=== PATIENT | male | born 1970 | race Caucasian/White ===

== ENCOUNTER 2018-03-23 08:57 | Inpatient (IN) ==
[2018-03-23] MEDS ORDERED: 0.9 % Sodium Chloride 1,000 ML IVC ONE (09:28)
[2018-03-23 10:13] LABS: Basophils % 0.3 %; Eosinophils # 0.1 K/mcL (0.0-0.6); Eosinophils % 0.4 %; Hemoglobin 14.4 g/dL (12.9-16.9); Immature Granulocytes % 0.7 % (0-4); Lymphocytes # 1.3 K/mcL (0.6-4.6); Lymphocytes % 8.4 %; Mean Corpuscular HGB Conc 32.7 g/dL (31.6-35.5); Mean Corpuscular Hemoglobin 27.9 pg (28.0-33.3); Mean Corpuscular Volume 85.1 fL (83.0-100.0); Mean Platelet Volume 10.4 fL (9.4-12.4); Monocytes # 1.5 K/mcL (0.0-1.3); Neutrophils # 12.3 K/mcL (1.6-8.9); Platelet Count 198 K/mcL (140-400); Red Blood Count 5.17 M/mcL (4.19-5.50); Red Cell Distribution Width 13.9 % (11.5-14.5); Segmented Neutrophils % 80.2 %
[2018-03-23] MEDS ORDERED: Isovue-370 500 ML INFUS..BTL IV ONE (10:24)
[2018-03-23] MEDS ORDERED: *HR* HYDROcodone/Acet 5/325 mg TABLET PO ONE (10:36)
[2018-03-23] MEDS ORDERED: Tdap (Boostrix) Vaccine 0.5 ML SYRINGE IM ONE (10:40)
--- NOTE | 2018-03-23 10:41 | Emergency Department Note ---
Disposition Clinical Impression: Cellulitis, Swelling of joint, hand, right, Extensor tenosynovitis of right wrist Disposition: Admitted As Inpatient Condition: Fair Referrals: NONE,PCP [Primary Care Provider] - Suyapa Dawson [Family Provider] - Forms: ED Satisfaction Letter Time of Disposition: 12:13 General Adult HPI - General Chief complaint: ED Extremity Injury, Upper Stated complaint: Right Hand Injury/Infection Time Seen by Provider: 03/23/18 09:01 Source: patient Mode of arrival: ambulatory Limitations: no limitations Nursing Notes Reviewed: Yes Vital Signs Reviewed: Yes - History of Present Illness HPI Narrative: Patient presents emergency room for evaluation of right upper extremity injury. He was seen in outside facility several days ago started on antibiotics and has not had any relief of the symptoms. Denies any specific trauma but has had injury to the arm in the past. He has pain over the wrist and swelling to the hand and is causing him significant distress and symptoms of this point. Patient decided to come in the emergency room for evaluation here today because he was unable tolerate the symptoms at home. Onset (ago): day(s) Location: right, upper extremity Radiation: non-radiation Pain Severity: moderate Pain Scale: 8 Quality: aching Consistency: constant Improves with: nothing Worsens with: movement Associated symptoms: Reports: denies other symptoms Treatments Prior to Arrival: none - Related Data Previous Rx's Medication Instructions Recorded Cephalexin [Keflex] 500 mg PO BID #14 capsule 03/21/18 Allergies Allergy/AdvReac Type Severity Reaction Status Date / Time No Known Allergies Allergy Verified 03/21/18 00:00 All systems ED: reviewed and negative except as stated. Review of Systems: As Per HPI Constitutional: Denies: fever, chills, weakness Cardiovascular: Denies: chest pain, palpitations, dyspnea on exertion, orthopnea Respiratory: Denies: cough, dyspnea Gastrointestinal: Denies: abdominal pain, nausea, vomiting, diarrhea Genitourinary: Denies: urgency, dysuria Musculoskeletal: Reports: joint swelling. Denies: back pain, neck pain Integumentary: Denies: rash, abrasion Neurological: Denies: headache Past Medical History - Past Medical History Attestation: Yes The following information was validated with the patient. Source: patient Medical history: Reports: no medical history Psychiatric history: Reports: no psych history - Social History Smoking Status: Current every day smoker Alcohol use: Reports: occasionally Drug use: Reports: methamphetamine, IV Drug Use Physical Exam - General Limitations: no limitations General appearance: alert, in no apparent distress - Head Head exam: atraumatic, normocephalic, normal inspection - Chest Chest inspection: Present: normal inspection, symmetric chest wall rise - Respiratory Respiratory exam: Present: normal lung sounds bilaterally - Cardiovascular Cardiovascular exam: Present: normal rhythm, tachycardia, normal heart sounds - Extremities Exam Extremities exam: Present: normal inspection, full ROM. Absent: tenderness, pedal edema - Back Exam Back exam: Present: normal inspection, full ROM. Absent: tenderness - Neurological Exam Neurological exam: Present: alert, oriented X3, CN II-XII intact, normal gait - Skin Skin exam: Present: warm, dry, intact, normal color Course Course Narrative: Patient seen and examined the time of arrival. See history of present illness. 47-year-old male presents emergency room with right hand swelling and pain. Approximate 4 days ago the patient developed significant pain in his hand when he extended his wrist and felt a pop. He is injured that hand in the past. He denies any new trauma or injury. Since the event he said progressively worsening swelling distal to the wrist. He was seen in outside facility started on antibiotics with concern for infection secondary to laceration sustained on the index finger of the right hand. He denies any fevers or chills denies chest pain shortness of breath headache vision changes nausea vomiting or diarrhea. No other trauma or injury noted. On physical exam the patient is resting comfortably in the bed but does have pain in his hand. He has no pain at the right shoulder right elbow. He does have pain at the right wrist and mid forearm. Compartments are soft on the forearm at this point. He has palpable radial pulses. He has good capillary refill and sensation out to the distal aspects of all 5 fingers on the affected hand. He has less than 4 second capillary refill at this point which appears to be appropriate. Denies any other complaints or issues. He does not have any physical signs of compartment syndrome. He has inability to extend the fingers and flex the fingers she just has discomfort secondary to the swelling and pain. The swelling appears to demarcate itself at the distal aspect of the wrist where the flexor and extensor retinaculum is oriented cells. He has no pain over the extensor tendon insertion site as well as the flexor tendon insertion sites at this point. He has full range of motion the elbow and shoulder in comparison to the left upper extremity. There is no visible signs of compartment syndrome in the forearm but there is concern for swelling and pressure in the hand secondary to infection versus complete heart mints pressure being applied over the retinaculum. Orthopedic hand surgeon will be consult to further recommendations as well as labs include a CBC chemistry blood culture and first dose of IV antibiotics will be given secondary to failed outpatient treatment. CT with IV contrast of the wrist and hand will be completed as well looking for other potential etiology. Disposition will most likely be admission wants a full workup and treatment course have been completed. No other concerns or issues at this time. Tetanus Updated - Reevaluation(s) Reevaluation #1: Labs do show slightly elevated white blood cell count along with neutrophilia. The remainder of the laboratory evaluation appears to be unremarkable. CT is still pending. Orthopedic hand physician Dr. Canada and I reviewed the case. He also agrees it does not initially appear to be compartment syndrome but recommends admission with antibiotics and observation inpatient setting. CT to be completed admission process will be established. Time: 11:15 Reevaluation #2: Patient is found to have what appears to be cellulitis with tenosynovitis. There does not appear to be extension past the mid forearm at this point IV antibiotics have been started. Pain medication has been given. Hand specialist has been contacted. Hospitals will be contacted this time for admission. Time: 11:57 Reevaluation #3: CT imaging confirms tenosynovitis with cellulitis. Antibiotic regimen started been started. Hospitalist was contacted for admission process to be completed. No other acute concerns or issues noted at this time. Patient has been informed of the findings and recommendation for admission is comfortable this plan. Clinically, there is no acute signs of compartment syndrome at this point the patient does have potential for this issue secondary to the demarcation of the swelling at the wrist. Patient will be observed and then inpatient setting for continuation of care Time: 12:13 Vital Signs Temperature 98.5 F 03/23/18 08:59 Pulse Rate 116 03/23/18 08:59 Respiratory Rate 16 03/23/18 08:59 Blood Pressure 165/92 03/23/18 08:59 O2 Sat by Pulse Oximetry 100 03/23/18 08:59 Temperature 98.5 F 03/23/18 09:16 Pulse Rate 116 03/23/18 09:16 Respiratory Rate 16 03/23/18 09:16 Blood Pressure 165/92 03/23/18 09:16 O2 Sat by Pulse Oximetry 100 03/23/18 09:16 Oxygen Delivery Oxygen Delivery Room Air Medical Decision Making - MDM Narrative Medical decision making narrative: Cellulitis, right hand swelling - Medical Records Medical records reviewed: Yes I reviewed the patient's medical records. - Lab Data Lab results reviewed: Yes I reviewed the patient's lab results. Result diagrams: 03/23/18 09:58 03/23/18 09:58 Lab Results 03/23/18 03/23/18 Range/Units 09:58 09:58 WBC 15.3 H (4.3-11.1) K/mcL RBC 5.17 (4.19-5.50) M/mcL Hgb 14.4 (12.9-16.9) g/dL Hct 44.0 (37.5-50.1) % MCV 85.1 (83.0-100.0) fL MCH 27.9 L (28.0-33.3) pg MCHC 32.7 (31.6-35.5) g/dL RDW 13.9 (11.5-14.5) % Plt Count 198 (140-400) K/mcL MPV 10.4 (9.4-12.4) fL Immature Gran % 0.7 (0-4) % Seg Neutrophils % 80.2 % Lymphocytes % 8.4 % Monocytes % 10.0 % Eosinophils % 0.4 % Basophils % 0.3 % Neutrophils # 12.3 H (1.6-8.9) K/mcL Lymphocytes # 1.3 (0.6-4.6) K/mcL Monocytes # 1.5 H (0.0-1.3) K/mcL Eosinophils # 0.1 (0.0-0.6) K/mcL Basophils # 0.0 (0.0-0.2) K/mcL Sodium 135 L (136-145) mEq/L Potassium 3.6 (3.5-5.1) mEq/L Chloride 103 (98-107) mEq/L Carbon Dioxide 24 (23-29) mEq/L BUN 10 (6-20) mg/dL Creatinine 0.72 (0.70-1.30) mg/dL Est GFR ( Amer) > 60 (> 60) Est GFR (Non-Af Amer) > 60 (> 60) BUN/Creatinine Ratio 14 (6-26) Glucose 156 H (70-105) mg/dL Calculated Osmolality 282 (280-300) Calcium 8.9 (8.6-10.3) mg/dL - Radiology Data Radiology results reviewed: Yes I reviewed the patient's radiology results. CT imaging confirms what appears to be cellulitis versus tenosynovitis of the extensor tendons
[2018-03-23 10:42] LABS: BUN/Creatinine Ratio 14 (6-26); Blood Urea Nitrogen 10 mg/dL (6-20); Calcium 8.9 mg/dL (8.6-10.3); Carbon Dioxide 24 mEq/L (23-29); Chloride 103 mEq/L (98-107); Glucose 156 mg/dL (70-105); Osmolality,Calculated 282 (280-300); Potassium 3.6 mEq/L (3.5-5.1); Sodium 135 mEq/L (136-145); eGFR For Non-African Americans > 60 (> 60)
[2018-03-23] MEDS ORDERED: Naloxone 0.4 MG/ML INJ IVP PRN ×2 (13:06→17:40)
[2018-03-23] MEDS ORDERED: traMADol 50 MG TABLET PO PRN (13:06)
[2018-03-23] MEDS ORDERED: Acetaminophen 325 MG TABLET PO PRN ×2 (13:06→17:40)
[2018-03-23] MEDS ORDERED: 0.9 % Sodium Chloride 1,000 ML IVC SCH (13:15)
--- NOTE | 2018-03-23 13:20 | Internal Med History&Physical ---
<DaynaJabier - Last Filed: 03/23/18 14:03> Date of Encounter: 03/23/18 Time of Encounter: 12:30 Internal Medicine - H&P: HPI Chief complaint: Pain/Swelling of Right Hand and Wrist Admitted From: Emergency Dept Plans for Post Hospital Care: Home History of present illness: Mr. Newby is a 47 year old male w/no PMH presents from the ED w/CC of pain and swelling in his right hand and wrist that began 4 days ago. Pt. states he felt a "pop" in his wrist and it began swelling w/pain. Reports going to [place] and being placed on PO Keflex for cellulitis. Pt. states sx worsened which prompted him to come to ED today. States he hurt same wrist 3-4 years ago when he fell off a fence and broke several small bones. Reports he was not compliant w/care and did not seek follow-up. No alleviating or aggravating factors. Pt. reports constipation for the past 4 days but denies recent illness, fever, chills, nausea, vomiting, headache, changes in vision, unusual bleeding, chest pain, shortness of breath, cough, chest congestion, abdominal pain, diarrhea, dizziness, lightheadedness, numbness, tingling, pre-syncope, or syncope. Past Med Surg Social Fam HX - Past Medical History Source: patient, old records reviewed Medical history: no medical history Psychiatric history: no psych history - Social History Smoking Status: Current every day smoker Packs per day: 1 PPD Alcohol use: occasionally Drug use: methamphetamine, IV Drug Use Current living situation: Home Activity Level: Independent ambulation Recent Out of Country Travel Within the Last 8 Weeks: No Exposure or Possible Exposure to Illness During Travel: No - Family History Father Race: Family Member Ethnicity: Non- Living Status: Age at : 78 Cause of : AR Hx Family Cardiac Disorders: Yes (AR, CAD) Mother Race: Family Member Ethnicity: Non- Living Status: Age at : 73 Cause of : AR Hx Family Cardiac Disorders: Yes (AR, CAD) Hx Family Endocrine Disorder: Yes (DM) Brother Race: Family Member Ethnicity: Non- Living Status: Age at : 58 Cause of : Tumor (Cancer type unknown) Hx Family Cancer: Yes (Type unknown) Sister Race: Family Member Ethnicity: Non- Living Status: Still Living Hx Family Medical Disorders: No Internal Medicine - H&P: Meds Cephalexin [Keflex] 500 mg PO BID #14 capsule 03/21/18 [Rx] 3 Allergy/AdvReac Type Severity Reaction Status Date / Time No Known Allergies Allergy Verified 03/21/18 00:00 All Systems PM: A 10-system review of systems was performed and is negative for pertinent findings except as documented above in the HPI. - Constitutional Constitutional: no chills, no fever(s), no night sweats - EENT Eyes: no change in vision, no discharge, no pain, no photophobia Ears: no ear discharge, no ear pain, no tinnitus Nose, mouth and throat: no dysphagia, no nasal discharge, no neck pain, no sore throat - Breasts Breasts: as per HPI - Cardiovascular Cardiovascular ROS IM: no chest pain, no diaphoresis, no dyspnea, no lightheadedness, no palpitations, no syncope - Respiratory Respiratory: no cough, no dyspnea, no wheezing, no excessive phlegm production - Gastrointestinal Gastrointestinal: as per HPI, constipation, no abdominal pain, no diarrhea, no hematemesis, no hematochezia, no melena, no nausea, no vomiting - Genitourinary Genitourinary ROS male: as per HPI - Musculoskeletal Musculoskeletal ROS IM: no numbness, no tingling - Integumentary Integumentary IM: as per HPI, erythema (Right hand w/edema), no rash, no unusual bruising - Neurological Neurological ROS: no confusion, no convulsions, no focal weakness, no numbness, no tingling, no tremor(s) - Psychiatric Psychiatric: as per HPI - Endocrine Endocrine IM: as per HPI - Hematologic/Lymphatic Hematologic/Lymphatic: no easy bruising - Allergic/Immunologic Allergic/Immunologic: as per HPI - Constitutional Vitals: Temp Pulse Resp BP Pulse Ox 98.5 F 116 16 165/92 100 03/23/18 09:16 03/23/18 09:16 03/23/18 09:16 03/23/18 09:16 03/23/18 09:16 General appearance: Present: cooperative, mild distress, A&O X 3, pleasant, underweight, answers questions appropriately Exam: Pt. examined at bedside in ED. Pt. resting comfortably in bed and reports pain in right hand and wrist. Hand is erythematous and edematous past the wrist. Pt. is not able to extend or flex any of the digits on the right hand. Denies any other sx on exam. Pt. is tachycardic w/HR >100. Reports hx of IV drug use. Stat urine tox screen ordered. VS: temp 98.5F, HR 116, RR 16, BP 165/92, SpO2 100% on RA. - Head Head exam: Present: atraumatic, normocephalic - Eye Eye exam: Present: PERRL, conjuntiva pink, sclera anicteric Pupils: Present: PERRL - ENT ENT exam: Present: normal exam - Neck Neck exam general surgery: Present: supple, trachea midline. Absent: lymphadenopathy - Respiratory Respiratory exam: Present: CTAB. Absent: accessory muscle use, rales, rhonchi, wheezes - Cardiovascular Cardiovascular exam: Present: RRR, +S1, +S2. Absent: diastolic murmur, gallop, rubs, systolic murmur - GI/Abdominal GI/Abdominal exam: Present: normal bowel sounds, soft, no peritoneal signs. Absent: distended, tenderness - Rectal Rectal exam: Present: deferred - Additional comments: exam deferred. - Extremities Exam Extremities exam: Present: tenderness (Right hand and wrist), warm, radial pulses palpable and symmetrical. Absent: calf tenderness, cyanotic, pedal edema - Expanded Upper Extremities Exam Hand wrist exam: Present: erythema (Right ), swelling (Right ), tenderness ( Right ) - Back Exam Back exam: Present: normal inspection - Neurological Exam Neurological exam: Present: alert, CN II-XII intact, oriented X3, no focal deficits. Absent: pronater drift, facial droop, speech deficit - Psychiatric Psychiatric exam: Present: anxious (Wants to go outside and smoke), normal affect, normal mood - Skin Skin exam: Present: dry, erythema (Right hand/wrist), intact, warm (Right hand/ wrist) Internal Med - H&P Results - Labs CBC & Chem 7: 03/23/18 09:58 03/23/18 09:58 Labs: Short CBC 03/23/18 Range/Units 09:58 WBC 15.3 H (4.3-11.1) K/mcL Hgb 14.4 (12.9-16.9) g/dL Hct 44.0 (37.5-50.1) % Plt Count 198 (140-400) K/mcL Neutrophils # 12.3 H (1.6-8.9) K/mcL BMP 03/23/18 09:58 Sodium 135 L Potassium 3.6 Chloride 103 Carbon Dioxide 24 BUN 10 Creatinine 0.72 Glucose 156 H Calcium 8.9 - Impressions ITS Impressions Wrist CT 03/23/18 10:24 IMPRESSION: 1. Extensive dorsal subcutaneous edema consistent with cellulitis. 2. Dorsal extensor tenosynovitis, likely infectious. There is a large (approximately 2.5 x 3.1 x 1.4 cm) focal fluid collection within the deep soft tissues along the dorsal aspect of the 1st and 2nd metatarsal bases which either reflects focal infectious tenosynovitis or abscess. D/ : / 03/23/2018 12:50:38 Stevie Thomas MD / jag Interpreting Provider: Stevie Thomas MD - Diagnostic Studies Other Images Additional comments: Impressions Wrist CT 03/23/18 10:24 IMPRESSION: 1. Extensive dorsal subcutaneous edema consistent with cellulitis. 2. Dorsal extensor tenosynovitis, likely infectious. There is a large (approximately 2.5 x 3.1 x 1.4 cm) focal fluid collection within the deep soft tissues along the dorsal aspect of the 1st and 2nd metatarsal bases which either reflects focal infectious tenosynovitis or abscess. D/ : / 03/23/2018 12:50:38 Stevie Thomas MD / jag Interpreting Provider: Stevie Thomas MD - Assessment and plan (1) Sepsis Current Visit: Yes Status: Acute Assessment and plan: Patient meeting acute sepsis criteria w/HR of 116, WBC of 15.3. Pt. received 1L 0.9 bolus in ED to be followed by 100 mLs/HR. Lactic acid ordered. Blood cultures x2 ordered. IVPB Vancomycin w/Pharmacy dosing and Zosyn 3.375 gm Q8HR for infection coverage. Will adjust abx based on culture results if warranted. Monitor lactic acid and add further boluses if warranted. Continuous cardiac telemetry. Monitor pt, VS, and f/u labs closely. Pt. discussed w/Dr. Mosher who agrees w/plan of care. Pt. is high risk for further morbidity and complications based on failed OP abx therapy for cellulitis, worsening erythema and edema of right hand and risk of compartment syndrome, current sepsis criteria, hx of injuring same hand/wrist 3-4 years ago, and risk factors. Inpatient. Qualifiers: Qualified Code(s): A41.9 - Sepsis, unspecified organism (2) Cellulitis Current Visit: Yes Status: Acute Assessment and plan: Acute cellultis of the right wrist. Pt. reports injuring wrist 4 days ago and hearing "pop". Laceration on index finger may be possible source. Inability to flex or extend any of the five fingers d/t pain and edema. Pt. reports going to hospital 4 days ago and failed OP abx therapy. IVPB Vancomycin w/Pharmacy dosing and Zosyn 3.375 gm Q8HR for infection coverage. PT/OT consults ordered. Orthopedic consult ordered in ED and I appreciate the consult and recommendations. Qualifiers: Site of cellulitis: extremity Site of cellulitis of extremity: upper extremity Laterality: right Qualified Code(s): L03.113 - Cellulitis of right upper limb (3) Extensor tenosynovitis of right wrist Current Visit: Yes Status: Acute Assessment and plan: Acute extensor tenosynovitis of the right wrist. Pt. reports injuring wrist 4 days ago and hearing "pop". Laceration on index finger. Inability to flex or extend any of the five fingers d/t pain and edema. IVPB Vancomycin w/Pharmacy dosing and Zosyn 3.375 gm Q8HR for infection coverage. PT/OT consults ordered. Orthopedic consult ordered in ED and I appreciate the consult and recommendations. (4) Constipation Current Visit: Yes Status: Acute Assessment and plan: Acute constipation that pt. reports for the past 4 days since injuring his hand. Colace 100 mg PO BID ordered. Monitor I&O. Qualifiers: Constipation type: unspecified constipation type Qualified Code(s): K59.00 - Constipation, unspecified (5) Tobacco abuse counseling Current Visit: Yes Status: Acute Assessment and plan: Pt. counseled >10 minutes regarding smoking dangers and cessation methods. Pt. states that he has tried nicotine patches in past which have not worked. Nicotine gum ordered. (6) Tobacco abuse Current Visit: Yes Status: Chronic Assessment and plan: Hx of chronic tobacco abuse. Pt. reports smoking 1 PPD. States nicotine patches have not worked for him in the past. Nicotine gum ordered. (7) DVT prophylaxis Current Visit: Yes Status: Acute Assessment and plan: Heparin 5,000 units Q8HR for DVT prophylaxis. Monitor pt. for signs of bleeding. (8) History of intravenous drug abuse Current Visit: Yes Status: Chronic Assessment and plan: Hx of chronic IV drug abuse. Pt. reports it has been a while since he injected. Stat urine tox screen ordered. Will use opioids judiciously. - Time Spent With Patient Total time spent is greater than 50% in coordination of care (as documented) at patient's floor/unit and/or counseling patient: Greater than 35 minutes <Jefferson Mosher - Last Filed: 03/23/18 15:52> Date of Encounter: 03/23/18 Internal Medicine - H&P: HPI History of present illness: Mr. Newby is a 47 year old male All Systems PM: A 10-system review of systems was performed and is negative for pertinent findings except as documented above in the HPI. - Constitutional Vitals: Temp Pulse Resp BP Pulse Ox 98.5 F 96 16 127/91 97 03/23/18 09:16 03/23/18 13:27 03/23/18 13:27 03/23/18 13:27 03/23/18 13:27 Internal Med - H&P Results - Labs CBC & Chem 7: 03/23/18 09:58 03/23/18 09:58 - Assessment and plan (1) Cellulitis Current Visit: Yes Status: Acute Qualifiers: Site of cellulitis: extremity Site of cellulitis of extremity: upper extremity Laterality: right Qualified Code(s): L03.113 - Cellulitis of right upper limb (2) Extensor tenosynovitis of right wrist Current Visit: Yes Status: Acute (3) Constipation Current Visit: Yes Status: Acute Qualifiers: Constipation type: unspecified constipation type Qualified Code(s): K59.00 - Constipation, unspecified (4) DVT prophylaxis Current Visit: Yes Status: Acute (5) Tobacco abuse Current Visit: Yes Status: Chronic (6) Tobacco abuse counseling Current Visit: Yes Status: Acute (7) Sepsis Current Visit: Yes Status: Acute Qualifiers: Qualified Code(s): A41.9 - Sepsis, unspecified organism (8) History of intravenous drug abuse Current Visit: Yes Status: Chronic - Time Spent With Patient Total time spent is greater than 50% in coordination of care (as documented) at patient's floor/unit and/or counseling patient: - Attending Attestation Seen and assessed. Agree with plan per PAYROLL DIRECTOR for sepsis 2/2 to cellulitis and right hand compartment syndrome. Orthopedic surgery on board. Continue plan of care as noted in assessment and plan
--- NOTE | 2018-03-23 13:48 | Orthopedic Consult Note ---
Date of Encounter: 03/23/18 Time of Encounter: 12:45 Assessment and Plan (1) Compartment syndrome of right hand Current Visit: Yes Status: Acute Exam revealed tight dorsal compartment of right hand. I discussed case with Dr. Canada who recommended checking the compartment pressures.The procedure was reviewed with patient and discussed r/b/a with him. He expressed understanding and consent was obtained. Dr. Canada also evaluated the patient and measured the compartment pressure using the Princess device after prepping the hand with betadine. dorsal compartment was measured to be 57. Dr. Canada recommends right hand fasciotomy to relieve the pressure in the dorsal compartment. This procedure as well as r/b/a was discussed with the patient and he expressed understanding. Consent was obtained. Patient states he has had nothing to eat today. He had a soda this morning and a sip of water recently just to take medications. Will be NPO. Continue to elevate the RUE. Qualifiers: Qualified Code(s): T79.A11A - Traumatic compartment syndrome of right upper extremity, initial encounter (2) Cellulitis Current Visit: Yes Status: Acute Qualifiers: Site of cellulitis: extremity Site of cellulitis of extremity: upper extremity Laterality: right Qualified Code(s): L03.113 - Cellulitis of right upper limb History of Present Illness Chief complaint: right hand swelling HPI: Mr. Newby is a 47 year old male who presented to the ER today with right hand swelling. He states about 4 days ago he was using a ratchet when he felt a pop in his wrist and has had increased pain since that time. He woke up the next morning and had swelling and redness so he went to [facility] where he was diagnosed with cellulitis and sent home on keflex. He returned to this ER today due to worsening of symptoms. Pain is constant pressure to hand with no radiation up arm. Denies any numbness or tingling to fingers but does have some numbness to palm. He has had decreased motion of hand due to swelling and pain. Denies any chest pain, SOB fevers. He admits to a cut to his right index finger that happened the same day or the day before but denies any other known injuries , denies IV drug use. States he did have a previous wrist fracture 3-4 years ago in which he admits to being noncompliant and it did not heal correctly and has had chronic issues with it ever since. He is right hand dominant. Past Med Surg Social Fam HX - Past Medical History Medical history: no medical history Psychiatric history: no psych history - Social History Smoking Status: Current every day smoker Packs per day: 1 PPD Alcohol use: occasionally Drug use: methamphetamine, IV Drug Use - Family History Father Race: Family Member Ethnicity: Non- Living Status: Age at : 78 Cause of : MO Hx Family Cardiac Disorders: Yes (MO, CAD) Mother Race: Family Member Ethnicity: Non- Living Status: Age at : 73 Cause of : MO Hx Family Cardiac Disorders: Yes (MO, CAD) Hx Family Endocrine Disorder: Yes (DM) Brother Race: Family Member Ethnicity: Non- Living Status: Age at : 58 Cause of : Tumor (Cancer type unknown) Hx Family Cancer: Yes (Type unknown) Sister Race: Family Member Ethnicity: Non- Living Status: Still Living Hx Family Medical Disorders: No Medications and Allergies Cephalexin [Keflex] 500 mg PO BID #14 capsule 03/21/18 [Rx] 3 Allergy/AdvReac Type Severity Reaction Status Date / Time No Known Allergies Allergy Verified 03/21/18 00:00 All Systems Reviewed: The remainder of the systems were reviewed and are negative - Constitutional Constitutional: as per HPI - Cardiovascular Cardiovascular: as per HPI - Respiratory Respiratory: as per HPI - Musculoskeletal Musculoskeletal: as per HPI Physical Exam - Constitutional Vitals: Temp Pulse Resp BP Pulse Ox 98.5 F 96 16 127/91 97 03/23/18 09:16 03/23/18 13:27 03/23/18 13:27 03/23/18 13:27 03/23/18 13:27 - Wrist & Hand right Location of pain: dorsal hand (There is significant swelling and erythema to the dorsal right hand. no open wounds or lesions noted to hand. There is a healing laceration to distal index finger scabbed now, erythema radiates from hand to wrist. Compartments to dorsal hand are tight with significant tenderness to palpation of dorsal hand. minimal tendernes to palm. AROM of hand and wrist restricted due to pain and swelling. moderate tenderness with passive flexion of fingers, mild pain with extension of fingers. significant pain with PROM of wrist. brisk cap refill, grossly NV intact. ) Results - Labs Result Diagrams: 03/23/18 09:58 03/23/18 09:58 Labs: Abnormal lab results WBC 15.3 K/mcL (4.3-11.1) H 03/23/18 09:58 MCH 27.9 pg (28.0-33.3) L 03/23/18 09:58 Neutrophils # 12.3 K/mcL (1.6-8.9) H 03/23/18 09:58 Monocytes # 1.5 K/mcL (0.0-1.3) H 03/23/18 09:58 Sodium 135 mEq/L (136-145) L 03/23/18 09:58 Glucose 156 mg/dL (70-105) H 03/23/18 09:58 H & H 03/23/18 Range/Units 09:58 Hgb 14.4 (12.9-16.9) g/dL Hct 44.0 (37.5-50.1) % All other labs normal. - Diagnostic results Wrist/Hand CT: report reviewed Consult Discharge Plan - Plan Referrals: NONE,PCP [Primary Care Provider] - Suyapa Dawson [Family Provider] - - Attending Attestation Case and plan of care discussed with supervising physician who was available for all aspects of care.
[2018-03-23] MEDS ORDERED: Nicotine 2 MG GUM BC SCH (14:00)
--- NOTE | 2018-03-23 14:00 | Anesthesia Evaluation PreOp ---
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") Medications and Allergies Cephalexin [Keflex] 500 mg PO BID #14 capsule 03/21/18 [Rx] 3 Allergy/AdvReac Type Severity Reaction Status Date / Time No Known Allergies Allergy Verified 03/21/18 00:00 - Meds/Allergy Pre-op Review Medications Reviewed: Yes Allergies Reviewed: Yes Beta Blockers on Current Med List: No Anesthesia Results - Labs 03/23/18 09:58 03/23/18 09:58 Anesthesia Exam Vital Signs/O2 Sat/Glucose, Most Recent Temp Pulse Resp BP Pulse Ox 98.5 F 96 16 127/91 97 03/23/18 09:16 03/23/18 13:27 03/23/18 13:27 03/23/18 13:27 03/23/18 13:27 Height: 1.78 m Weight: 62 kg - HEENT Pupil (Motor): Pupils equal Mallampati: II Teeth: Edentulous Oral Opening: Greater than 3 - CLIP RIVETER LOC: Oriented CLIP RIVETER Motor: Normal RUE, Normal LUE, Normal RLE, Normal LLE, Normal Face CLIP RIVETER Sensory: Normal: RUE, LUE, RLE, LLE, Face - Cardiac Rhythm: Regular Murmur: None - Pulmonary Breath Sounds: bilateral Clear Respiratory Effort: Symmetrical Anesthesia Assess/Plan ASA Score: 2, E Modified Rajni Scale for Level of Consciousness: Cooperative, oriented, and tranquil Anesthetic Plan: General Monitoring Plan: Standard Monitors Recovery Plan: PACU
[2018-03-23] MEDS ORDERED: MORPHINE SUL Oral CONC 10 MG/0.5 ML ORAL.SYG SL PRN (14:14)
[2018-03-23] MEDS ORDERED: Ondansetron 4 MG/2 ML VIAL IVP ONE ×2 (14:14→17:40)
[2018-03-23] MEDS ORDERED: *HR* Labetalol 100 MG/20 ML MDV IVP PRN ×2 (14:14→17:40)
[2018-03-23] MEDS ORDERED: *HR* Promethazine 25 MG/ML VIAL IVP PRN ×2 (14:14→17:40)
[2018-03-23] MEDS ORDERED: *HR* OxyCODONE Immed Rel 5 MG TABLET PO PRN ×2 (14:14→17:40)
[2018-03-23] MEDS ORDERED: *HR* Propofol 200 MG/20 ML VIAL IVP ONE (14:40)
[2018-03-23] MEDS ORDERED: Ondansetron 4 MG/2 ML VIAL ONE (14:40)
[2018-03-23] MEDS ORDERED: *HR* FentaNYL (PF) 100 MCG/2 ML VIAL ONE ×3 (14:40→15:07)
[2018-03-23] MEDS ORDERED: Lidocaine -MPF 2% 2 ML VIAL ONE (14:40)
[2018-03-23] MEDS ORDERED: *HR* Midazolam HCl 2 MG/2 ML VIAL ONE (14:40)
[2018-03-23] MEDS ORDERED: Dexamethasone 4 MG/ML VIAL ONE (14:40)
[2018-03-23] MEDS ORDERED: *HR* Morphine 10 MG/ML VIAL ONE (14:44)
[2018-03-23] MEDS ORDERED: *HR* Heparin 5,000 UNIT/ML VIAL SQ SCH (14:45)
[2018-03-23] MEDS ORDERED: Acetaminophen IV 1,000 MG/100 ML INFUS..BTL ONE (15:00)
[2018-03-23] MEDS ORDERED: Piperacillin/Tazobactam 3.375 GM in 0.9 % Sodium Chloride Mini Bag 100 ML IVPB SCH (15:00)
[2018-03-23] MEDS: *HR* FentaNYL (PF) 100 MCG/2 ML VIAL IVP PRN ×4 (16:04→16:25)
--- NOTE | 2018-03-23 16:18 | Operative Note ---
Date of procedure: 03/23/18 Pre-op diagnosis: Right hand compartment syndrome with cellulitis Post-op diagnosis: other (Right hand compartment syndrome with deep abscess in adductor space) Procedure: Right hand fasciotomies with incision and drainage of deep abscess Right wrist open carpal tunnel release Anesthesia: SANJAY Surgeon: Tenzin Canada Was there an medical billing assistant present: No Estimated blood loss (cc): 40 Tourniquet Time (Minutes): 0 Specimen: Sent to microbiology Condition: stable Disposition: PACU Procedure in Detail: The patient was brought into the OR and placed on the OR table in supine position with the right upper extremity on a hand table. A sign in was performed. The patient was recently given IV vancomycin in the emergency room. He underwent general anesthesia. A tourniquet was placed on his right arm close to the axilla. The right upper extremity was then prepped and draped in usual sterile fashion. A timeout was performed. The patient's diastolic pressure was 60. A [employer] manometer was used to recheck his compartments. The thenar measured 40, hyperthenar 40, the fourth dorsal interossei space was 51, the second volar interossei space 55; and the abductor space was 61. A 4 cm longitudinal incision made on the dorsum over the second metacarpal and another parallel 4 cm incision made over the dorsum of the fourth metacarpal. The hand softened up significantly. A 5 cm long open carpal tunnel incision made starting from the dissection Sorensen 's cardinal line and rubor the ring finger, going proximally towards the distal wrist flexion crease. The subcutaneous tissue and palmar fascia were sharply incised. Hemostasis obtained with bipolar cautery. The transverse carpal ligament was sharply incised. The distal and was released with tenotomies and also proximal end with antebrachial fascia, also released with tenotomies. The median nerve appeared to be very swollen. A 3 cm incision was made on the ulna aspect of the hand, decompressing the hypothenar compartment. A 3 cm incisions was made to decompress the thenar musculature. The fingers and thumb were all very soft with no swelling. Moving back to the dorsum of the hand. The subcutaneous tissue and the radial incision appeared very hemorrhagic. Hemostat was used to spread decompressing the 4 dorsal interossei compartments, and bluntly spread across to release the 3 volar interossei compartments. The small amount of purulent fluid came out from the deep third volar compartment. Cultures were obtained. Finally, also spreading deep along the second metacarpal to release the adductor pollicis muscle. There was copious amount of pus came out from the adductor space. This was recultured for aerobic and anaerobic. The wound was copiously irrigated normal saline. The [employer] manometer was once again used to recheck his compartments. The thenar measured 8, hypothenar 2, the fourth dorsal interossei space was 12, the second volar interossei space 1; and the abductor space was 16. Also used a hemostat to spread into the web spaces to make sure there was no hidden deep pus pockets. Once satisfactory, the wounds irrigated once again. The carpal tunnel incision was closed with 3-0 nylon vertical mattress and simple sutures. One vertical mattress sutures placed at the thenar and hypothenar wounds, closing skin down. The thenar and hypothenar eminences remained soft. The dorsal wounds were left open. Half-inch iodoform packing was packed into the deep interosseous spaces also mainly into that abductor space. The wounds were copiously irrigated with normal saline. The forearm was soft. There is no purulence tracking from the proximal wrist area. The patient was given a proximal wrist block using 10 mL of 0.5% Marcaine. Sterile dressings applied, and the patient was wrapped with Kerlix.
[2018-03-23] MEDS ORDERED: Pregabalin 75 MG CAPSULE PO ONE (16:28)
[2018-03-23] MEDS ORDERED: cloNIDine HCl 0.1 MG TABLET PO ONE (16:29)
[2018-03-23] MEDS ORDERED: Acetaminophen IV 1,000 MG/100 ML INFUS..BTL IVPB ONE (16:29)
[2018-03-23] MEDS ORDERED: *HR* HYDROmorphone (PF) 1 MG/ML SYRINGE ONE (16:37)
[2018-03-23] MEDS ORDERED: cloNIDine HCl 0.1 MG TABLET ONE (16:37)
[2018-03-23 16:40] LABS: C-Reactive Protein 125 mg/L (Less than 10)
[2018-03-23] MEDS: *HR* HYDROmorphone (PF) 1 MG/ML SYRINGE IVP PRN ×2 (16:42→16:52)
[2018-03-23] MEDS ORDERED: *HR* FentaNYL (PF) 100 MCG/2 ML VIAL IVP PRN (17:40)
[2018-03-23] MEDS: 0.9 % Sodium Chloride 1,000 ML IVC SCH (19:16)
[2018-03-23 19:19] LABS: Amphetamine Screen,Urine Negative ng/mL (Cutoff=1000); Barbiturate Screen,Urine Negative ng/mL (Cutoff=200); Benzodiazepines Screen,Urine Positive ng/mL (Cutoff=200); Cannabinoid Screen,Urine Positive ng/mL (Cutoff = 50); Cocaine Screen,Urine Negative ng/mL (Cutoff= 300); Opiate Screen,Urine Positive ng/mL (Cutoff=300); Phencyclidine Screen,Urine Negative ng/mL (Cutoff=25)
--- NOTE | 2018-03-23 21:31 | Electrocardiograph Report ---
[place] [employer] Test Date: 2018-03-23 Pat Name: Jabier Newby Department: [id number] Room: [facility] Gender: M Network Support: : 1970 Requested By: [id number] Order Number: [id number] Reading MD: Santi Stark Measurements Intervals [place] Rate: 95 P: 66 [place]: 141 QRS: 88 QRSD: 84 T: 49 QT: 338 QTc: 425 Interpretive Statements Sinus rhythm Left ventricular hypertrophy Baseline wander in lead(s) V6 Electronically Signed On 03-23-2018 21:29:43 EDT by Santi Stark
[2018-03-24] MEDS: *HR* Heparin 5,000 UNIT/ML VIAL SQ SCH ×4 (00:59→22:27)
[2018-03-24] MEDS: Piperacillin/Tazobactam 3.375 GM in 0.9 % Sodium Chloride Mini Bag 100 ML IVPB SCH ×3 (01:00→16:13)
[2018-03-24 01:24] LABS: Basophils % 0.1 %; Hematocrit 34.8 % (37.5-50.1); Immature Granulocytes % 0.4 % (0-4); Lymphocytes # 1.4 K/mcL (0.6-4.6); Lymphocytes % 8.6 %; Mean Corpuscular HGB Conc 34.5 g/dL (31.6-35.5); Mean Corpuscular Hemoglobin 28.4 pg (28.0-33.3); Mean Corpuscular Volume 82.3 fL (83.0-100.0); Mean Platelet Volume 10.3 fL (9.4-12.4); Monocytes # 1.2 K/mcL (0.0-1.3); Neutrophils # 13.9 K/mcL (1.6-8.9); Platelet Count 230 K/mcL (140-400); Red Blood Count 4.23 M/mcL (4.19-5.50); Red Cell Distribution Width 13.9 % (11.5-14.5); Segmented Neutrophils % 83.9 %
[2018-03-24 01:42] LABS: Alanine Aminotransferase 8 Units/L (7-52); Alkaline Phosphatase 73 Units/L (34-104); Aspartate Amino Transferase 11 Units/L (13-39); BUN/Creatinine Ratio 15 (6-26); Bilirubin,Total 0.3 mg/dL (0.3-1.0); Blood Urea Nitrogen 10 mg/dL (6-20); Calcium 8.6 mg/dL (8.6-10.3); Carbon Dioxide 26 mEq/L (23-29); Chloride 108 mEq/L (98-107); Chol/HDL Ratio 4.1 (0-4.9); Cholesterol 86 mg/dL (< 200); Globulin 3.1 g/dL (2.4-3.5); Glucose 161 mg/dL (70-105); HDL Cholesterol 21 mg/dL (40-59); LDL Cholesterol,Calculated 56 mg/dL (0-99); Magnesium 1.7 mg/dL (1.6-2.6); Osmolality,Calculated 293 (280-300); Potassium 3.6 mEq/L (3.5-5.1); Sodium 140 mEq/L (136-145); Total Protein 6.1 g/dL (6.4-8.9); Triglycerides 44 mg/dL (< 150); eGFR For Non-African Americans > 60 (> 60)
[2018-03-24] MEDS: Nicotine 2 MG GUM BC SCH ×10 (06:36→22:41)
[2018-03-24] MEDS: traMADol 50 MG TABLET PO PRN ×4 (06:40→23:50)
[2018-03-24] MEDS: 0.9 % Sodium Chloride 1,000 ML IVC SCH ×2 (07:01→23:52)
[2018-03-24 08:14] LABS: Estimated Average Glucose 126 mg/dl
[2018-03-24] MEDS: MORPHINE SUL Oral CONC 10 MG/0.5 ML ORAL.SYG SL PRN ×2 (09:42→16:13)
--- NOTE | 2018-03-24 16:58 | Orthopedics Progress Note ---
Date of Encounter: 03/24/18 Time of Encounter: 16:30 - Assessment and Plan (1) Compartment syndrome of right hand Current Visit: Yes Status: Acute Continued erythema and swelling to right hand. Packing removed today without complication and patient tolerated well. No active drainage, no increase with gentle palpation. Will now begin local wound care washing with soap/water 3xdaily and recover with dry gauze and kerlix dressings based on amount of drainage. Keep RUE elevated. ROM of fingers and wrist as tolerated. WBC increased from 15.3 to 16.6. Yesterday ESR 42 and CRP 125 Continue IV abx. Currently receiving zosyn and vancomycin. Intraop Wound cultures pending Pain control per hospitalist. Will reevaluate tomorrow. Qualifiers: Qualified Code(s): T79.A11A - Traumatic compartment syndrome of right upper extremity, initial encounter (2) Cellulitis Current Visit: Yes Status: Acute Qualifiers: Site of cellulitis: extremity Site of cellulitis of extremity: upper extremity Laterality: right Qualified Code(s): L03.113 - Cellulitis of right upper limb Subjective Principal diagnosis: POD#1 s/p Right hand fasciotomies with I&D deep abscess, OCTR 03/24/18 Interval history: Patient doing well today, continued pain in hand but he admits it has improved and motion has improved. Denies any new symptoms at this time. Denies any numbness or tingling. States nurse just reinforced the dressings recently to the right hand due to drainage coming through. Objective Vital signs: Vital Signs Temp Pulse Resp BP Pulse Ox 03/24/18 15:22 99.8 F H 93 18 131/71 98 03/24/18 11:59 98.9 F 90 18 137/68 98 03/24/18 07:34 98 03/24/18 06:57 100.4 F H 98 18 134/78 98 03/24/18 03:41 99.3 F 96 18 153/82 99 03/23/18 23:20 99.5 F 104 18 155/81 98 03/23/18 17:24 98.2 F 93 18 158/89 98 03/23/18 17:08 84 16 155/91 98 Intake and Output 03/24/18 03/24/18 03/24/18 07:59 15:59 23:59 Intake Total 1300 / 1300 250 / 250 100 / 100 Output Total 725 / 725 1175 / 1175 Balance 575 / 575 -925 / -925 100 / 100 Intake: IV Fluids 1300 / 1300 250 / 250 100 / 100 0.9 % Sodium Chloride 1,000 ML 1000 / 1000 @ 100 mls/hr IVC .Q10H [facility] Rx#: [id number] Zosyn 3.375 GM In 0.9 % Sodium 100 / 100 100 / 100 Chloride (Mini-Bag +) 100 ML @ 25 mls/hr IVPB Q8HR [facility] Rx#: [id number] Vancocin 1,000 MG In 0.9 % 200 / 200 250 / 250 Sodium Chloride 250 ML @ 167 mls/hr IVPB Q12H [facility] Rx#: [id number] Output: Urine 725 / 725 1175 / 1175 Other: Weight 73.8 kg Patient Weight 03/24/18 23:59 Weight 73.8 kg Incision: draining (There are multiple open incisions to the dorsal and sides of hand, closed incision to palmar hand, packing in place to 2 of the dorsal incisions. No active drainage. Moderate swelling, erythema and ecchymosis noted. swelling improved some compared to yesterday. ROM still restricted but somewhat improved compared to yesterday as well. brisk cap refill, grossly NV intact.) - Labs CBC & BMP: 03/24/18 00:46 03/24/18 00:46 Labs: Abnormal lab results WBC 16.6 K/mcL (4.3-11.1) H 03/24/18 00:46 Hgb 12.0 g/dL (12.9-16.9) L D 03/24/18 00:46 Hct 34.8 % (37.5-50.1) L 03/24/18 00:46 MCV 82.3 fL (83.0-100.0) L 03/24/18 00:46 Neutrophils # 13.9 K/mcL (1.6-8.9) H 03/24/18 00:46 ESR 42 mm/hr (0-10) H 03/23/18 09:58 Chloride 108 mEq/L (98-107) H 03/24/18 00:46 Creatinine 0.66 mg/dL (0.70-1.30) L 09/12/18 00:46 Glucose 161 mg/dL (70-105) H 03/24/18 00:46 Hemoglobin A1c 6.0 % (-5.6) H 03/24/18 00:46 AST 11 Units/L (13-39) L 03/24/18 00:46 C-Reactive Protein 125 mg/L (Less than 10) H 03/23/18 09:58 Serum Total Protein 6.1 g/dL (6.4-8.9) L 03/24/18 00:46 Albumin 3.0 g/dL (3.5-5.7) L 03/24/18 00:46 Albumin/Globulin Ratio 1.0 (1.1-2.2) L 03/24/18 00:46 HDL Cholesterol 21 mg/dL (40-59) L 03/24/18 00:46 Urine Opiates Screen Positive ng/mL (Wpmmtd=448) H 03/23/18 18:45 U Benzodiazepines Scrn Positive ng/mL (Dlpzuk=883) H 03/23/18 18:45 U Marijuana (THC) Screen Positive ng/mL (Cutoff = 50) H 03/23/18 18:45 Consult Discharge Plan - Plan Referrals: NONE,PCP [Primary Care Provider] - Suyapa Dawson [Family Provider] -
--- NOTE | 2018-03-24 18:46 | Internal Med Progress Note ---
Hospitalist Progress Note - Encounter Date of Encounter: 03/24/18 Time of Encounter: 11:00 - Subjective Interval History: Patient presented with right hand swelling found to have cellulitis with compartment syndrome of right hand Patient postop day 0 for Right hand fasciotomies with incision and drainage of deep abscess Patient's pain controlled this morning but is running low-grade fever with leukocytosis - Exam Vitals: Temp Pulse Resp BP Pulse Ox 99.8 F H 93 18 131/71 98 03/24/18 15:22 03/24/18 15:22 03/24/18 15:22 03/24/18 15:22 03/24/18 15:22 Exam: Gen.: Nonacute distress, alert and oriented 3 ENT: Mucosal membranes moist Respiratory: Lungs are clear to auscultation bilaterally without any wheezing rhonchi or rales Cardiovascular: Normal S1 and S2 regular rate rhythm no murmurs rubs or gallops Abdomen: Soft, nontender and nondistended with positive bowel sounds Extremities: No lower extremity edema Skin: Normal color - Assessment and Plan (1) Sepsis Current Visit: Yes Status: Acute Assessment and Plan: Patient still with leukocytosis with low-grade fever and elevated heart rate Will continue IV fluids and IV antibiotics as below (2) Abscess of hand, right Current Visit: Yes Status: Acute Assessment and Plan: Patient POD 0 for Right hand fasciotomies with incision and drainage of deep abscess Cultures pending Will continue IV Zosyn and IV vancomycin until culture results known (3) Compartment syndrome of right hand Current Visit: Yes Status: Acute Assessment and Plan: POD 0 Right hand fasciotomies with incision and drainage of deep absces as above Orthopedics following and appreciate recommendations (4) Tobacco abuse Current Visit: Yes Status: Chronic Assessment and Plan: Smoking cessation; nicotine replacements offered (5) History of intravenous drug abuse Current Visit: Yes Status: Chronic Assessment and Plan: Hx of chronic IV drug abuse. Will use opioids judiciously. DVT Prophylaxis: Heparin subcutaneous - Time Spent with Patient Total time spent is greater than 50% in coordination of care (as documented) at patient's floor/unit and/or counseling patient: Internal Medicine: Result - Labs CBC & Chem 7: 03/24/18 00:46 03/24/18 00:46 Labs: Short CBC 03/24/18 Range/Units 00:46 WBC 16.6 H (4.3-11.1) K/mcL Hgb 12.0 L D (12.9-16.9) g/dL Hct 34.8 L (37.5-50.1) % Plt Count 230 (140-400) K/mcL Neutrophils # 13.9 H (1.6-8.9) K/mcL BMP 03/24/18 00:46 Sodium 140 Potassium 3.6 Chloride 108 H Carbon Dioxide 26 BUN 10 Creatinine 0.66 L Glucose 161 H Calcium 8.6 Liver Function 03/24/18 Range/Units 00:46 Total Bilirubin 0.3 (0.3-1.0) mg/dL AST 11 L (13-39) Units/L ALT 8 (7-52) Units/L Alkaline Phosphatase 73 (34-104) Units/L Albumin 3.0 L (3.5-5.7) g/dL Consult Discharge Plan - Plan Referrals: NONE,PCP [Primary Care Provider] - Jaskaran DawsonConversio [Family Provider] - (1) Sepsis Qualifiers: Qualified Code(s): A41.9 - Sepsis, unspecified organism (3) Compartment syndrome of right hand Qualifiers: Qualified Code(s): T79.A11A - Traumatic compartment syndrome of right upper extremity, initial encounter
[2018-03-25 01:36] LABS: Basophils % 0.2 %; Eosinophils # 0.1 K/mcL (0.0-0.6); Eosinophils % 1.5 %; Hematocrit 31.9 % (37.5-50.1); Hemoglobin 10.7 g/dL (12.9-16.9); Immature Granulocytes % 0.3 % (0-4); Lymphocytes # 1.2 K/mcL (0.6-4.6); Lymphocytes % 13.2 %; Mean Corpuscular HGB Conc 33.5 g/dL (31.6-35.5); Mean Corpuscular Hemoglobin 27.6 pg (28.0-33.3); Mean Corpuscular Volume 82.4 fL (83.0-100.0); Mean Platelet Volume 10.5 fL (9.4-12.4); Monocytes # 0.3 K/mcL (0.0-1.3); Monocytes % 3.5 %; Neutrophils # 7.5 K/mcL (1.6-8.9); Platelet Count 211 K/mcL (140-400); Red Blood Count 3.87 M/mcL (4.19-5.50); Red Cell Distribution Width 14.2 % (11.5-14.5); Segmented Neutrophils % 81.3 %
[2018-03-25 01:43] LABS: Alanine Aminotransferase 9 Units/L (7-52); Albumin 2.9 g/dL (3.5-5.7); Albumin/Globulin Ratio 0.9 (1.1-2.2); Alkaline Phosphatase 71 Units/L (34-104); Aspartate Amino Transferase 12 Units/L (13-39); BUN/Creatinine Ratio 16 (6-26); Bilirubin,Total 0.4 mg/dL (0.3-1.0); Blood Urea Nitrogen 12 mg/dL (6-20); Calcium 8.4 mg/dL (8.6-10.3); Carbon Dioxide 24 mEq/L (23-29); Chloride 107 mEq/L (98-107); Globulin 3.1 g/dL (2.4-3.5); Glucose 146 mg/dL (70-105); Osmolality,Calculated 286 (280-300); Potassium 3.4 mEq/L (3.5-5.1); Sodium 137 mEq/L (136-145); eGFR For Non-African Americans > 60 (> 60)
[2018-03-25] MEDS: traMADol 50 MG TABLET PO PRN ×2 (06:24→20:39)
[2018-03-25] MEDS: *HR* Heparin 5,000 UNIT/ML VIAL SQ SCH ×3 (06:25→20:40)
[2018-03-25] MEDS: Nicotine 2 MG GUM BC SCH ×7 (06:26→20:40)
[2018-03-25] MEDS: Piperacillin/Tazobactam 3.375 GM in 0.9 % Sodium Chloride Mini Bag 100 ML IVPB SCH ×3 (09:54→20:40)
--- NOTE | 2018-03-25 10:05 | Internal Med Progress Note ---
Hospitalist Progress Note - Encounter Date of Encounter: 03/25/18 Time of Encounter: 11:00 - Subjective Interval History: Patient presented with right hand swelling found to have cellulitis with compartment syndrome of right hand Patient postop day 1 for Right hand fasciotomies with incision and drainage of deep abscess Patient's leukocytosis has resolved this morning and has been afebrile for 24 hours - Exam Vitals: Temp Pulse Resp BP Pulse Ox 99.7 F H 86 98 135/83 18 03/25/18 07:30 03/25/18 07:30 03/25/18 07:30 03/25/18 07:30 03/25/18 07:30 Exam: Gen.: Nonacute distress, alert and oriented 3 ENT: Mucosal membranes moist Respiratory: Lungs are clear to auscultation bilaterally without any wheezing rhonchi or rales Cardiovascular: Normal S1 and S2 regular rate rhythm no murmurs rubs or gallops Abdomen: Soft, nontender and nondistended with positive bowel sounds Extremities: No lower extremity edema Skin: Normal color - Assessment and Plan (1) Abscess of hand, right Current Visit: Yes Status: Acute Assessment and Plan: Patient POD 1 for Right hand fasciotomies with incision and drainage of deep abscess Cultures have grown staph aureus with presumptive identification of MRSA Will place patient on contact precautions and continue day 3 of IV vancomycin but discontinue IV Zosyn (2) Sepsis Current Visit: Yes Status: Acute Assessment and Plan: Resolved; patient leukocytosis resolved and has been afebrile for 24 hours Continue management as above (3) Compartment syndrome of right hand Current Visit: Yes Status: Acute Assessment and Plan: POD 1 Right hand fasciotomies with incision and drainage of deep absces as above Orthopedics following and appreciate recommendations (4) Tobacco abuse Current Visit: Yes Status: Chronic Assessment and Plan: Smoking cessation; nicotine replacements offered (5) History of intravenous drug abuse Current Visit: Yes Status: Chronic Assessment and Plan: Hx of chronic IV drug abuse. Will use opioids judiciously. DVT Prophylaxis: Subcutaneous heparin - Time Spent with Patient Total time spent is greater than 50% in coordination of care (as documented) at patient's floor/unit and/or counseling patient: Internal Medicine: Result - Labs CBC & Chem 7: 03/25/18 00:36 03/25/18 00:36 Labs: Short CBC 03/25/18 Range/Units 00:36 WBC 9.2 (4.3-11.1) K/mcL Hgb 10.7 L (12.9-16.9) g/dL Hct 31.9 L (37.5-50.1) % Plt Count 211 (140-400) K/mcL Neutrophils # 7.5 (1.6-8.9) K/mcL BMP 03/25/18 00:36 Sodium 137 Potassium 3.4 L Chloride 107 Carbon Dioxide 24 BUN 12 Creatinine 0.73 Glucose 146 H Calcium 8.4 L Liver Function 03/25/18 Range/Units 00:36 Total Bilirubin 0.4 (0.3-1.0) mg/dL AST 12 L (13-39) Units/L ALT 9 (7-52) Units/L Alkaline Phosphatase 71 (34-104) Units/L Albumin 2.9 L (3.5-5.7) g/dL Consult Discharge Plan - Plan Referrals: NONE,PCP [Primary Care Provider] - Suyapa Dawson [Family Provider] -
[2018-03-25] MEDS: MORPHINE SUL Oral CONC 10 MG/0.5 ML ORAL.SYG SL PRN ×2 (10:53→22:43)
--- NOTE | 2018-03-25 13:13 | Orthopedics Progress Note ---
Date of Encounter: 03/25/18 Time of Encounter: 12:25 - Assessment and Plan (1) Compartment syndrome of right hand Current Visit: Yes Status: Acute POD#2 Continued erythema and swelling to right hand but some improvement today. Continue local wound care washing with soap/water 3xdaily and recover with dry gauze and kerlix dressings based on amount of drainage. Keep RUE elevated. ROM of fingers and wrist as tolerated. Will have therapy show patient exercises to work on ROM. WBC improved to 9.2 today Preliminary cultures show Gram +cocci presumptive MRSA Continue IV abx. Currently receiving zosyn and vancomycin. Spoke with hospitalist who plans to consult ID. Will follow their recommendations. Pain control per hospitalist. Qualifiers: Qualified Code(s): T79.A11A - Traumatic compartment syndrome of right upper extremity, initial encounter (2) Cellulitis Current Visit: Yes Status: Acute Qualifiers: Site of cellulitis: extremity Site of cellulitis of extremity: upper extremity Laterality: right Qualified Code(s): L03.113 - Cellulitis of right upper limb Subjective Principal diagnosis: POD#2 s/p Right hand fasciotomies with I&D deep abscess, OCTR 03/24/18 Interval history: Patient doing well today, continued pain in hand but he continues to see improvement to pain and motion compared to yesterday. Denies any new symptoms at this time. Denies any numbness or tingling. Objective Vital signs: Vital Signs Temp Pulse Resp BP Pulse Ox 03/25/18 07:30 99.7 F H 86 18 135/83 98 03/25/18 03:39 98.5 F 76 18 145/83 99 03/24/18 23:08 99.2 F 80 16 147/68 97 03/24/18 19:17 98.9 F 89 18 118/70 98 03/24/18 15:22 99.8 F H 93 18 131/71 98 Intake and Output 03/24/18 03/25/18 03/25/18 23:59 07:59 15:59 Intake Total 1320 / 1320 350 / 350 250 / 250 Output Total 400 / 400 Balance 920 / 920 350 / 350 250 / 250 Intake: IV Fluids 1200 / 1200 350 / 350 250 / 250 0.9 % Sodium Chloride 1,000 ML 1000 / 1000 @ 100 mls/hr IVC .Q10H [facility] Rx#: [id number] Zosyn 3.375 GM In 0.9 % Sodium 200 / 200 100 / 100 Chloride (Mini-Bag +) 100 ML @ 25 mls/hr IVPB Q8HR [facility] Rx#: [id number] Vancocin 1,250 MG In 0.9 % 250 / 250 250 / 250 Sodium Chloride 250 ML @ 166.67 mls/hr IVPB Q8H [facility] Rx#: [id number] Oral 120 / 120 Output: Urine 400 / 400 Other: Meal Dinner Percent of Meal Consumed 60% Incision: draining (Improving erythema to dorsal hand, moderate ecchymosis and swelling. Incisions to dorsal hand still having purulent drainage. improving motion to fingers but still limited at MP joints and wrist. brisk cap refill. grossly NV intact) - Labs CBC & BMP: 03/25/18 00:36 03/25/18 00:36 Labs: Abnormal lab results RBC 3.87 M/mcL (4.19-5.50) L 03/25/18 00:36 Hgb 10.7 g/dL (12.9-16.9) L 03/25/18 00:36 Hct 31.9 % (37.5-50.1) L 03/25/18 00:36 MCV 82.4 fL (83.0-100.0) L 03/25/18 00:36 MCH 27.6 pg (28.0-33.3) L 03/25/18 00:36 ESR 42 mm/hr (0-10) H 03/23/18 09:58 Potassium 3.4 mEq/L (3.5-5.1) L 03/25/18 00:36 Glucose 146 mg/dL (70-105) H 03/25/18 00:36 Hemoglobin A1c 6.0 % (-5.6) H 03/24/18 00:46 Calcium 8.4 mg/dL (8.6-10.3) L 03/25/18 00:36 AST 12 Units/L (13-39) L 03/25/18 00:36 C-Reactive Protein 125 mg/L (Less than 10) H 03/23/18 09:58 Serum Total Protein 6.0 g/dL (6.4-8.9) L 03/25/18 00:36 Albumin 2.9 g/dL (3.5-5.7) L 03/25/18 00:36 Albumin/Globulin Ratio 0.9 (1.1-2.2) L 03/25/18 00:36 HDL Cholesterol 21 mg/dL (40-59) L 03/24/18 00:46 Urine Opiates Screen Positive ng/mL (Kjvfqh=964) H 03/23/18 18:45 U Benzodiazepines Scrn Positive ng/mL (Picjbt=678) H 03/23/18 18:45 U Marijuana (THC) Screen Positive ng/mL (Cutoff = 50) H 03/23/18 18:45 Consult Discharge Plan - Plan Referrals: NONE,PCP [Primary Care Provider] - Suyapa Dawson [Family Provider] -
[2018-03-25] MEDS: 0.9 % Sodium Chloride 1,000 ML IVC SCH ×2 (15:36→20:39)
[2018-03-26 01:08] LABS: Basophils % 0.4 %; Eosinophils # 0.4 K/mcL (0.0-0.6); Hematocrit 31.8 % (37.5-50.1); Hemoglobin 10.8 g/dL (12.9-16.9); Immature Granulocytes % 0.4 % (0-4); Lymphocytes # 2.2 K/mcL (0.6-4.6); Lymphocytes % 40.9 %; Mean Corpuscular Hemoglobin 27.8 pg (28.0-33.3); Mean Platelet Volume 9.5 fL (9.4-12.4); Monocytes # 0.5 K/mcL (0.0-1.3); Monocytes % 9.7 %; Neutrophils # 2.2 K/mcL (1.6-8.9); Platelet Count 217 K/mcL (140-400); Red Blood Count 3.88 M/mcL (4.19-5.50); Red Cell Distribution Width 13.9 % (11.5-14.5); Segmented Neutrophils % 41.6 %
[2018-03-26 01:25] LABS: Alanine Aminotransferase 12 Units/L (7-52); Albumin 2.7 g/dL (3.5-5.7); Albumin/Globulin Ratio 0.9 (1.1-2.2); Alkaline Phosphatase 61 Units/L (34-104); Aspartate Amino Transferase 16 Units/L (13-39); BUN/Creatinine Ratio 16 (6-26); Bilirubin,Total 0.2 mg/dL (0.3-1.0); Blood Urea Nitrogen 10 mg/dL (6-20); Calcium 8.2 mg/dL (8.6-10.3); Carbon Dioxide 26 mEq/L (23-29); Chloride 103 mEq/L (98-107); Globulin 3.1 g/dL (2.4-3.5); Glucose 123 mg/dL (70-105); Osmolality,Calculated 284 (280-300); Potassium 3.6 mEq/L (3.5-5.1); Sodium 137 mEq/L (136-145); Total Protein 5.8 g/dL (6.4-8.9); eGFR For Non-African Americans > 60 (> 60)
[2018-03-26] MEDS: 0.9 % Sodium Chloride 1,000 ML IVC SCH ×2 (03:38)
[2018-03-26] MEDS: MORPHINE SUL Oral CONC 10 MG/0.5 ML ORAL.SYG SL PRN (03:38)
[2018-03-26] MEDS: Nicotine 2 MG GUM BC SCH ×4 (05:24→13:00)
[2018-03-26] MEDS: *HR* Heparin 5,000 UNIT/ML VIAL SQ SCH ×3 (06:39→21:04)
[2018-03-26 09:06] LABS: C-Reactive Protein 47 mg/L (Less than 10)
--- NOTE | 2018-03-26 11:33 | Infectious Disease Consult ---
Date of Encounter: 03/26/18 Time of Encounter: 11:15 Assessment and Plan (1) Sepsis Status: Acute Assessment and plan: Patient has 3 SIRS criteria on admission Secondary to right wrist/hand cellulitis with abscess and compartment syndrome Qualifiers: Sepsis type: methicillin resistant Staphylococcus aureus Qualified Code(s) : A41.02 - Sepsis due to Methicillin resistant Staphylococcus aureus (2) Abscess of hand, right Status: Acute Assessment and plan: Status post I&D by Dr. Canada on 03/23/2018 Intra-Op cultures grew MRSA R:doxycycline S: bactrim/clindamycin Patient has been on vancomycin Elevated inflammatory markers Agree with current antibiotics treatments Goal vancomycin trough around 15 Preferably I would like to do IV antibiotics on this patient because of how extensive and deep the infection is with possible involvement of the tendon in the muscle Patient with history of IV drug use so I given the option to put a PICC line and sent to a intermediate He said he will think about it If he decides that he does not want to do that, we will discharge him on prolonged course of oral Bactrim 1 tablet DS every 12 hours for probably 2-[address] Canada (3) Compartment syndrome of hand Status: Acute Assessment and plan: Secondary to deep tissue abscess with severe swelling Causative organism MRSA Status post right hand fasciotomies with incision and drainage of the abscess Status post right wrist open carpal tunnel release Clinically seems to be improving Qualifiers: Encounter type: initial encounter Laterality: right Qualified Code(s): T79.A11A - Traumatic compartment syndrome of right upper extremity, initial encounter (4) Cellulitis of right hand Status: Acute (5) IVDU (intravenous drug user) Status: Acute Assessment and plan: We will check HIV and hepatitis profile (6) Tobacco abuse Status: Chronic Assessment and plan: Patient requested a nicotine patch Infectious Disease HPI - Data of Consult Patient: new to practice Consult date: 03/26/18 Requesting Physician: Geoffrey Manuel Primary Care Provider: STACY JEFFRIES Family Provider: Viridiana Provider - Consult Narrative Reason for consult: Hand abscess History of present illness: Mr. Newby is a 47 year old male Patient is a 47-year-old gentleman who presented to [place] on 03/23/2018 complaining of pain and swelling in the right hand and wrist, we are consult. Today for hand abscess with MRSA and antibiotics recommendations. Patient is a 47-year-old gentleman with no apparent past medical history and a social history positive for tobacco and IV drug use including methamphetamine apparently presented to the emergency department with pain and swelling the right hand and wrist that began 4 days prior to admission. Patient states he felt a pop in the wrist and it began swelling with pain patient was seen in the emergency department [facility] where he was placed on Keflex for cellulitis, symptoms get worse and eventually came to [place] for evaluation. Since admission, patient's has been febrile with MAXIMUM TEMPERATURE of 100.9 Fahrenheit, tachycardic and hemodynamically stable. Presenting labs revealed a WBC of 15.3 with 80% neutrophils no bands. ESR was obtained and it was 42 and ESR was 125.. Chemistry showed normal BUN and creatinine. A urine tox screen revealed positive opiates, benzodiazepines and marijuana. Blood cultures were obtained on 03/23/2018 2 out of 2 sets and are still negative. Patient had a CT of the right wrist which showed extensive dorsal subcutaneous edema consistent with cellulitis. Dorsal extensor tenosynovitis, likely infectious. There is a large 2.52.11.4 cm focal fluid collection within the deep soft tissue along the dorsal aspect of the first and second metatarsal base which either reflects infectious tenosynovitis or abscess. Patient was taken by Dr. Oneal to surgery for right hand compartment syndrome with cellulitis and was underwent a right hand fasciotomy with incision and drainage of the abscess and right wrist open carpal tunnel release. Op note reviewed and it was apparently copious amount of pus coming out of the Dr. space. I did speak with Dr. Oneal and he said he has compartment syndrome with some probably necrotic muscles and tenosynovitis. Currently patient tells me he is feeling better. Patient apparently has not seen a physician. He does not know if he had any infection past including HIV or hepatitis C. CC: Geoffrey Manuel Past Med Surg Social Fam HX - Past Medical History Medical history: no medical history Psychiatric history: no psych history - Social History Smoking Status: Current every day smoker Packs per day: 1 PPD Alcohol use: occasionally Drug use: methamphetamine, IV Drug Use - Family History Father Race: Family Member Ethnicity: Non- Living Status: Age at : 78 Cause of : CT Hx Family Cardiac Disorders: Yes (CT, CAD) Mother Race: Family Member Ethnicity: Non- Living Status: Age at : 73 Cause of : CT Hx Family Cardiac Disorders: Yes (CT, CAD) Hx Family Endocrine Disorder: Yes (DM) Brother Race: Family Member Ethnicity: Non- Living Status: Age at : 58 Cause of : Tumor (Cancer type unknown) Hx Family Cancer: Yes (Type unknown) Sister Race: Family Member Ethnicity: Non- Living Status: Still Living Hx Family Medical Disorders: No Infectious Disease-CN:Meds Cephalexin [Keflex] 500 mg PO BID #14 capsule 03/21/18 [Rx] 3 Allergy/AdvReac Type Severity Reaction Status Date / Time No Known Allergies Allergy Verified 03/21/18 00:00 Review of systems: 10 point review of systems done, negative other for what is mentioned in history of present illness. Exam - Constitutional Vitals: Temp Pulse Resp BP Pulse Ox 98.5 F 86 18 126/84 98 03/26/18 06:38 03/26/18 06:38 03/26/18 06:38 03/26/18 06:38 03/26/18 06:38 General appearance: cooperative, no acute distress, no febrile - Head Head exam: Present: atraumatic, normocephalic - Eye Eye exam: Present: EOMI, PERRL, sclera anicteric Additional comments: No conjunctival hemorrhages noted - ENT Additional comments: Patient has poor dentition. No oral thrush - Neck Neck exam: Present: full ROM. Absent: lymphadenopathy - Respiratory Respiratory exam: Present: CTAB. Absent: rhonchi, wheezes - Cardiovascular Cardiovascular exam: Present: RRR, +S1, +S2 Additional comments: I did not appreciate any murmur - GI/Abdominal GI/Abdominal exam: Present: normal bowel sounds, soft. Absent: tenderness - Extremities Exam Additional comments: Right hand/wrist surgically wrapped. Lower extremity with no pedal edema. Adequate perfusion. - Neurological Exam Neurological exam: Present: alert, oriented X3. Absent: speech deficit - Skin Skin exam: Present: normal color. Absent: rash Additional comments: No endocarditis stigmata Infectious Disease CN: Results - Labs CBC & Chem 7: 03/26/18 00:38 03/26/18 00:38 Cultures: Cultures 03/23/18 15:53 Anaerobic Culture - Preliminary Right Hand At this time, no anaerobic growth is present. The culture will be finalized after 5 days of incubation. 03/23/18 15:53 Anaerobic Culture - Preliminary Right Hand At this time, no anaerobic growth is present. The culture will be finalized after 5 days of incubation. 03/23/18 15:53 Wound Culture - Final Right Hand Methicillin Resistant S.aureus 03/23/18 15:53 Wound Culture - Preliminary Right Hand Gram Positive Cocci Consult Discharge Plan - Plan Referrals: NONE,PCP [Primary Care Provider] - Suyapa Dawson [Family Provider] -
[2018-03-26] MEDS: Ketorolac 30 MG/ML VIAL IVP PRN ×2 (14:25→21:04)
[2018-03-26] MEDS: Nicotine 21 MG PATCH.TD24 TD SCH (15:51)
--- NOTE | 2018-03-26 19:00 | Internal Med Progress Note ---
Hospitalist Progress Note - Encounter Date of Encounter: 03/26/18 Time of Encounter: 11:00 - Subjective Interval History: Patient presented with right hand swelling found to have cellulitis with compartment syndrome of right hand Patient postop day 2 for Right hand fasciotomies with incision and drainage of deep abscess Patient's leukocytosis has resolved this morning and has been afebrile for 48 hours Infectious disease consulted with recommendations for a long course of IV antibiotics Patient now awaiting precertification for prison facility. - Exam Vitals: Temp Pulse Resp BP Pulse Ox 98.8 F 88 19 134/74 98 03/26/18 18:45 03/26/18 18:45 03/26/18 18:45 03/26/18 18:45 03/26/18 18:45 Exam: Gen.: Nonacute distress, alert and oriented 3 ENT: Mucosal membranes moist Respiratory: Lungs are clear to auscultation bilaterally without any wheezing rhonchi or rales Cardiovascular: Normal S1 and S2 regular rate rhythm no murmurs rubs or gallops Abdomen: Soft, nontender and nondistended with positive bowel sounds Extremities: No lower extremity edema Skin: Normal color - Assessment and Plan (1) Abscess of hand, right Current Visit: Yes Status: Acute Assessment and Plan: Patient POD 2 for Right hand fasciotomies with incision and drainage of deep abscess Cultures positive for MRSA Will continue day 4 of IV vancomycin Infectious disease recommends that patient be treated with a long course of IV vancomycin therefore patient will need to be precertified for prison facility placement. (2) Sepsis Current Visit: Yes Status: Acute Assessment and Plan: Resolved; patient leukocytosis resolved and has been afebrile for 48 hours Continue management as above (3) Compartment syndrome of right hand Current Visit: Yes Status: Acute Assessment and Plan: POD 2 Right hand fasciotomies with incision and drainage of deep absces as above Orthopedics following and appreciate recommendations (4) Tobacco abuse Current Visit: Yes Status: Chronic Assessment and Plan: Smoking cessation; nicotine replacements offered (5) History of intravenous drug abuse Current Visit: Yes Status: Chronic Assessment and Plan: Hx of chronic IV drug abuse. Will use opioids judiciously. DVT Prophylaxis: Subcutaneous heparin - Time Spent with Patient Total time spent is greater than 50% in coordination of care (as documented) at patient's floor/unit and/or counseling patient: Internal Medicine: Result - Labs CBC & Chem 7: 03/26/18 00:38 03/26/18 00:38 Labs: Short CBC 03/26/18 Range/Units 00:38 WBC 5.3 (4.3-11.1) K/mcL Hgb 10.8 L (12.9-16.9) g/dL Hct 31.8 L (37.5-50.1) % Plt Count 217 (140-400) K/mcL Neutrophils # 2.2 (1.6-8.9) K/mcL BMP 03/26/18 00:38 Sodium 137 Potassium 3.6 Chloride 103 Carbon Dioxide 26 BUN 10 Creatinine 0.64 L Glucose 123 H Calcium 8.2 L Liver Function 03/26/18 Range/Units 00:38 Total Bilirubin 0.2 L (0.3-1.0) mg/dL AST 16 (13-39) Units/L ALT 12 (7-52) Units/L Alkaline Phosphatase 61 (34-104) Units/L Albumin 2.7 L (3.5-5.7) g/dL Consult Discharge Plan - Plan Referrals: NONE,PCP [Primary Care Provider] - Suyapa Dawson [Family Provider] - (2) Sepsis Qualifiers: Sepsis type: methicillin resistant Staphylococcus aureus Qualified Code(s): A41.02 - Sepsis due to Methicillin resistant Staphylococcus aureus
[2018-03-27] MEDS: Ketorolac 30 MG/ML VIAL IVP PRN ×3 (03:02→19:59)
[2018-03-27 03:32] LABS: Basophils % 0.4 %; Eosinophils # 0.3 K/mcL (0.0-0.6); Eosinophils % 5.1 %; Hematocrit 30.5 % (37.5-50.1); Hemoglobin 10.2 g/dL (12.9-16.9); Immature Granulocytes % 0.9 % (0-4); Lymphocytes # 1.7 K/mcL (0.6-4.6); Lymphocytes % 30.5 %; Mean Corpuscular HGB Conc 33.4 g/dL (31.6-35.5); Mean Corpuscular Hemoglobin 27.1 pg (28.0-33.3); Mean Corpuscular Volume 80.9 fL (83.0-100.0); Mean Platelet Volume 9.4 fL (9.4-12.4); Monocytes # 0.5 K/mcL (0.0-1.3); Monocytes % 9.5 %; Platelet Count 247 K/mcL (140-400); Red Blood Count 3.77 M/mcL (4.19-5.50); Segmented Neutrophils % 53.6 %
[2018-03-27 03:56] LABS: Alanine Aminotransferase 14 Units/L (7-52); Albumin 2.6 g/dL (3.5-5.7); Albumin/Globulin Ratio 0.8 (1.1-2.2); Alkaline Phosphatase 59 Units/L (34-104); Aspartate Amino Transferase 16 Units/L (13-39); BUN/Creatinine Ratio 19 (6-26); Bilirubin,Total 0.2 mg/dL (0.3-1.0); Blood Urea Nitrogen 13 mg/dL (6-20); Calcium 8.2 mg/dL (8.6-10.3); Carbon Dioxide 27 mEq/L (23-29); Chloride 108 mEq/L (98-107); Globulin 3.1 g/dL (2.4-3.5); Glucose 115 mg/dL (70-105); Osmolality,Calculated 289 (280-300); Potassium 3.3 mEq/L (3.5-5.1); Sodium 139 mEq/L (136-145); Total Protein 5.7 g/dL (6.4-8.9); eGFR For Non-African Americans > 60 (> 60)
[2018-03-27 04:41] LABS: HIV-1&2 Antibody & p24 Ag Nonreactive (Nonreactive); Hepatitis B Surface Antigen Nonreactive (Nonreactive)
[2018-03-27] MEDS: *HR* Heparin 5,000 UNIT/ML VIAL SQ SCH ×3 (06:24→20:11)
--- NOTE | 2018-03-27 07:24 | Orthopedics Progress Note ---
Date of Encounter: 03/26/18 Time of Encounter: 13:00 - Assessment and Plan (1) Compartment syndrome of right hand Current Visit: Yes Status: Acute LATE ENTRY - patient evaluated on 03/26/18 at 13:00 POD#3 Continued but improving ROM, erythema and swelling to right hand Continue local wound care washing with soap/water 3xdaily and recover with dry gauze and kerlix dressings based on amount of drainage. Keep RUE elevated. ROM of fingers and wrist as tolerated. Will have therapy show patient exercises to work on ROM. LABS - improving - WBC 5.3, ESR 29, CRP 47 Intraop wound cultures + MRSA Continue IV abx. Currently receiving vancomycin. ID following. Appreciate their recommendations. Ideally patient would be on IV abx with PICC for 4-6 weeks but patient has h/o IVDA so would be required to stay in [facility]CF for treatment for monitoring. He also has no insurance. He has applied for medicaid but approval may take awhile. If patient declines to stay for the IV abx then ID did present option of DC on PO abx as a secondary option but again prefers the IV abx. Pain control per hospitalist. Will follow up with Raquel Thomason PA-C in [facility] office on 04/05/18. Qualifiers: Qualified Code(s): T79.A11D - Traumatic compartment syndrome of right upper extremity, subsequent encounter (2) Cellulitis Current Visit: Yes Status: Acute Qualifiers: Site of cellulitis: extremity Site of cellulitis of extremity: upper extremity Laterality: right Qualified Code(s): L03.113 - Cellulitis of right upper limb Subjective Principal diagnosis: POD#3 s/p Right hand fasciotomies with I&D deep abscess, OCTR 03/24/18 Interval history: Patient doing well today, continued pain in hand but he continues to see improvement to pain and motion. Denies any new symptoms at this time. Denies any numbness or tingling. He states he has been trying to work on motion and keep hand elevated Objective Vital signs: Vital Signs Temp Pulse Resp BP Pulse Ox 03/27/18 06:51 98.8 F 78 16 156/82 99 03/27/18 00:22 98.5 F 84 17 139/70 97 03/26/18 21:05 98 03/26/18 18:45 98.8 F 88 19 134/74 98 03/26/18 14:00 97.8 F 89 16 136/81 96 03/26/18 10:00 98.2 F 93 16 129/78 99 Intake and Output 03/26/18 03/26/18 03/27/18 15:59 23:59 07:59 Intake Total 1350 / 1350 750 / 750 500 / 500 Output Total 400 / 400 Balance 950 / 950 750 / 750 500 / 500 Intake: IV Fluids 1000 / 1000 750 / 750 500 / 500 0.9 % Sodium Chloride 1,000 ML 1000 / 1000 @ 100 mls/hr IVC .Q10H [facility] Rx#: [id number] Vancocin 1,250 MG In 0.9 % 250 / 250 Sodium Chloride 250 ML @ 166.67 mls/hr IVPB Q8H [facility] Rx#: [id number] Vancocin 1,750 MG In 0.9 % 500 / 500 500 / 500 Sodium Chloride 500 ML @ 333.3 mls/hr IVPB Q12H [facility] Rx#: [id number] Oral 350 / 350 Output: Urine 400 / 400 Other: Meal Lunch Percent of Meal Consumed 100% Incision: draining (continued but improving swelling, erythema and drainage from dorsal hand. Continued skin sloughing around the radial sided dorsal incisions, improved flexion/extension of fingers at MP joint, moderate tenderness to palpation of dorsal hand, minimal tenderness to palmar hand. brisk cap refill, NV intact) - Labs CBC & BMP: 03/27/18 03:00 03/27/18 03:00 Labs: Abnormal lab results RBC 3.77 M/mcL (4.19-5.50) L 03/27/18 03:00 Hgb 10.2 g/dL (12.9-16.9) L 03/27/18 03:00 Hct 30.5 % (37.5-50.1) L 03/27/18 03:00 MCV 80.9 fL (83.0-100.0) L 03/27/18 03:00 MCH 27.1 pg (28.0-33.3) L 03/27/18 03:00 ESR 29 mm/hr (0-10) H 03/26/18 00:38 Potassium 3.3 mEq/L (3.5-5.1) L 03/27/18 03:00 Chloride 108 mEq/L (98-107) H 03/27/18 03:00 Glucose 115 mg/dL (70-105) H 03/27/18 03:00 Hemoglobin A1c 6.0 % (-5.6) H 03/24/18 00:46 Calcium 8.2 mg/dL (8.6-10.3) L 03/27/18 03:00 Total Bilirubin 0.2 mg/dL (0.3-1.0) L 03/27/18 03:00 C-Reactive Protein 47 mg/L (Less than 10) H 03/26/18 00:38 Serum Total Protein 5.7 g/dL (6.4-8.9) L 03/27/18 03:00 Albumin 2.6 g/dL (3.5-5.7) L 03/27/18 03:00 Albumin/Globulin Ratio 0.8 (1.1-2.2) L 03/27/18 03:00 HDL Cholesterol 21 mg/dL (40-59) L 03/24/18 00:46 Vancomycin Trough 15 mcg/mL (5-10) H 03/25/18 23:10 Urine Opiates Screen Positive ng/mL (Lycsbn=116) H 03/23/18 18:45 U Benzodiazepines Scrn Positive ng/mL (Kmfspe=912) H 03/23/18 18:45 U Marijuana (THC) Screen Positive ng/mL (Cutoff = 50) H 03/23/18 18:45 Consult Discharge Plan - Plan Referrals: NONE,PCP [Primary Care Provider] - Suyapa Dawson [Family Provider] -
[2018-03-27] MEDS: Nicotine 21 MG PATCH.TD24 TD SCH (09:47)
--- NOTE | 2018-03-27 10:42 | Internal Med Progress Note ---
Hospitalist Progress Note - Encounter Date of Encounter: 03/27/18 Time of Encounter: 09:00 - Subjective Interval History: Patient presented with right hand swelling found to have cellulitis with compartment syndrome of right hand Patient postop day 3 for Right hand fasciotomies with incision and drainage of deep abscess Infectious disease consulted with recommendations for a long course of IV antibiotics Patient now awaiting precertification for intermediate facility. - Exam Vitals: Temp Pulse Resp BP Pulse Ox 98.8 F 78 16 156/82 99 03/27/18 06:51 03/27/18 06:51 03/27/18 06:51 03/27/18 06:51 03/27/18 06:51 Exam: Gen.: Nonacute distress, alert and oriented 3 ENT: Mucosal membranes moist Respiratory: Lungs are clear to auscultation bilaterally without any wheezing rhonchi or rales Cardiovascular: Normal S1 and S2 regular rate rhythm no murmurs rubs or gallops Abdomen: Soft, nontender and nondistended with positive bowel sounds Extremities: No lower extremity edema Skin: Normal color - Assessment and Plan (1) Abscess of hand, right Current Visit: Yes Status: Acute Assessment and Plan: Patient POD 3 for Right hand fasciotomies with incision and drainage of deep abscess Cultures positive for MRSA Will continue day 5 of IV vancomycin Infectious disease recommends that patient be treated with a long course of IV vancomycin therefore patient will need to be precertified for intermediate facility placement. (2) Sepsis Current Visit: Yes Status: Acute Assessment and Plan: Resolved; patient leukocytosis resolved and has been afebrile Continue management as above (3) Compartment syndrome of right hand Current Visit: Yes Status: Acute Assessment and Plan: POD 3 Right hand fasciotomies with incision and drainage of deep absces as above Orthopedics following and appreciate recommendations (4) Tobacco abuse Current Visit: Yes Status: Chronic Assessment and Plan: Smoking cessation; nicotine replacements offered (5) History of intravenous drug abuse Current Visit: Yes Status: Chronic Assessment and Plan: Hx of chronic IV drug abuse. Will use opioids judiciously. DVT Prophylaxis: Subcutaneous heparin - Time Spent with Patient Total time spent is greater than 50% in coordination of care (as documented) at patient's floor/unit and/or counseling patient: Internal Medicine: Result - Labs CBC & Chem 7: 03/27/18 03:00 03/27/18 03:00 Labs: Short CBC 03/27/18 Range/Units 03:00 WBC 5.5 (4.3-11.1) K/mcL Hgb 10.2 L (12.9-16.9) g/dL Hct 30.5 L (37.5-50.1) % Plt Count 247 (140-400) K/mcL Neutrophils # 3.0 (1.6-8.9) K/mcL BMP 03/27/18 03:00 Sodium 139 Potassium 3.3 L Chloride 108 H Carbon Dioxide 27 BUN 13 Creatinine 0.70 Glucose 115 H Calcium 8.2 L Liver Function 03/27/18 Range/Units 03:00 Total Bilirubin 0.2 L (0.3-1.0) mg/dL AST 16 (13-39) Units/L ALT 14 (7-52) Units/L Alkaline Phosphatase 59 (34-104) Units/L Albumin 2.6 L (3.5-5.7) g/dL Consult Discharge Plan - Plan Referrals: NONE,PCP [Primary Care Provider] - Suyapa Dawson [Family Provider] - (2) Sepsis Qualifiers: Sepsis type: methicillin resistant Staphylococcus aureus Qualified Code(s): A41.02 - Sepsis due to Methicillin resistant Staphylococcus aureus (3) Compartment syndrome of right hand Qualifiers: Qualified Code(s): T79.A11D - Traumatic compartment syndrome of right upper extremity, subsequent encounter
[2018-03-27 19:42] LABS: Amphetamine Screen,Urine Negative ng/mL (Cutoff=1000); Barbiturate Screen,Urine Negative ng/mL (Cutoff=200); Benzodiazepines Screen,Urine Negative ng/mL (Cutoff=200); Cannabinoid Screen,Urine Positive ng/mL (Cutoff = 50); Cocaine Screen,Urine Negative ng/mL (Cutoff= 300); Opiate Screen,Urine Positive ng/mL (Cutoff=300); Phencyclidine Screen,Urine Negative ng/mL (Cutoff=25)
[2018-03-28] MEDS: Ketorolac 30 MG/ML VIAL IVP PRN ×2 (03:22→10:35)
[2018-03-28 03:42] LABS: Basophils % 0.3 %; Eosinophils # 0.3 K/mcL (0.0-0.6); Eosinophils % 3.8 %; Hematocrit 31.9 % (37.5-50.1); Hemoglobin 10.8 g/dL (12.9-16.9); Immature Granulocytes % 0.8 % (0-4); Lymphocytes % 27.9 %; Mean Corpuscular HGB Conc 33.9 g/dL (31.6-35.5); Mean Corpuscular Hemoglobin 27.9 pg (28.0-33.3); Mean Corpuscular Volume 82.4 fL (83.0-100.0); Mean Platelet Volume 9.4 fL (9.4-12.4); Monocytes # 0.6 K/mcL (0.0-1.3); Monocytes % 8.6 %; Neutrophils # 4.3 K/mcL (1.6-8.9); Platelet Count 273 K/mcL (140-400); Red Blood Count 3.87 M/mcL (4.19-5.50); Red Cell Distribution Width 13.9 % (11.5-14.5); Segmented Neutrophils % 58.6 %
[2018-03-28 03:56] LABS: Alanine Aminotransferase 15 Units/L (7-52); Albumin 2.7 g/dL (3.5-5.7); Albumin/Globulin Ratio 0.8 (1.1-2.2); Alkaline Phosphatase 65 Units/L (34-104); Aspartate Amino Transferase 16 Units/L (13-39); BUN/Creatinine Ratio 15 (6-26); Bilirubin,Total 0.2 mg/dL (0.3-1.0); Blood Urea Nitrogen 10 mg/dL (6-20); Calcium 8.2 mg/dL (8.6-10.3); Carbon Dioxide 26 mEq/L (23-29); Chloride 109 mEq/L (98-107); Globulin 3.2 g/dL (2.4-3.5); Glucose 115 mg/dL (70-105); Osmolality,Calculated 292 (280-300); Potassium 3.5 mEq/L (3.5-5.1); Sodium 141 mEq/L (136-145); Total Protein 5.9 g/dL (6.4-8.9); eGFR For Non-African Americans > 60 (> 60)
[2018-03-28] MEDS: *HR* Heparin 5,000 UNIT/ML VIAL SQ SCH (05:39)
[2018-03-28] MEDS: Nicotine 21 MG PATCH.TD24 TD SCH (08:53)
--- NOTE | 2018-03-28 10:26 | Internal Med Progress Note ---
Hospitalist Progress Note - Encounter Date of Encounter: 03/28/18 - Subjective Interval History: Patient presented with right hand swelling found to have cellulitis with compartment syndrome of right hand Patient postop day 4 for Right hand fasciotomies with incision and drainage of deep abscess Infectious disease consulted with recommendations for a long course of IV antibiotics Patient now awaiting precertification for jail facility. - Exam Vitals: Temp Pulse Resp BP Pulse Ox 98.9 F 81 15 133/81 100 03/28/18 07:05 03/28/18 07:05 03/28/18 07:05 03/28/18 07:05 03/28/18 09:07 Exam: Gen.: Nonacute distress, alert and oriented 3 ENT: Mucosal membranes moist Respiratory: Lungs are clear to auscultation bilaterally without any wheezing rhonchi or rales Cardiovascular: Normal S1 and S2 regular rate rhythm no murmurs rubs or gallops Abdomen: Soft, nontender and nondistended with positive bowel sounds Extremities: No lower extremity edema Skin: Normal color - Assessment and Plan (1) Abscess of hand, right Current Visit: Yes Status: Acute Assessment and Plan: Patient POD 3 for Right hand fasciotomies with incision and drainage of deep abscess Cultures positive for MRSA Will continue day 6 of IV vancomycin Infectious disease recommends that patient be treated with a long course of IV vancomycin therefore patient will need to be precertified for jail facility placement. (2) Sepsis Current Visit: Yes Status: Acute Assessment and Plan: Resolved; patient leukocytosis resolved and has been afebrile Continue management as above (3) Compartment syndrome of right hand Current Visit: Yes Status: Acute Assessment and Plan: POD 4 Right hand fasciotomies with incision and drainage of deep absces as above Orthopedics following and appreciate recommendations (4) Tobacco abuse Current Visit: Yes Status: Chronic Assessment and Plan: Smoking cessation; nicotine replacements offered (5) History of intravenous drug abuse Current Visit: Yes Status: Chronic Assessment and Plan: Hx of chronic IV drug abuse. Will use opioids judiciously. DVT Prophylaxis: Subcutaneous heparin - Time Spent with Patient Total time spent is greater than 50% in coordination of care (as documented) at patient's floor/unit and/or counseling patient: Internal Medicine: Result - Labs CBC & Chem 7: 03/28/18 03:24 03/28/18 03:24 Labs: Short CBC 03/28/18 Range/Units 03:24 WBC 7.3 (4.3-11.1) K/mcL Hgb 10.8 L (12.9-16.9) g/dL Hct 31.9 L (37.5-50.1) % Plt Count 273 (140-400) K/mcL Neutrophils # 4.3 (1.6-8.9) K/mcL BMP 03/28/18 03:24 Sodium 141 Potassium 3.5 Chloride 109 H Carbon Dioxide 26 BUN 10 Creatinine 0.67 L Glucose 115 H Calcium 8.2 L Liver Function 03/28/18 Range/Units 03:24 Total Bilirubin 0.2 L (0.3-1.0) mg/dL AST 16 (13-39) Units/L ALT 15 (7-52) Units/L Alkaline Phosphatase 65 (34-104) Units/L Albumin 2.7 L (3.5-5.7) g/dL Consult Discharge Plan - Plan Referrals: NONE,PCP [Primary Care Provider] - Suyapa Dawson [Family Provider] - (2) Sepsis Qualifiers: Sepsis type: methicillin resistant Staphylococcus aureus Qualified Code(s): A41.02 - Sepsis due to Methicillin resistant Staphylococcus aureus (3) Compartment syndrome of right hand Qualifiers: Qualified Code(s): T79.A11D - Traumatic compartment syndrome of right upper extremity, subsequent encounter
[2018-03-28 11:33] VITALS: BP 145/79
[2018-03-28] MEDS: traMADol 50 MG TABLET PO PRN (11:58)
[2018-03-28] MEDS ORDERED: Aminoglycoside Consult 1 EACH MC ONE (12:19)
--- NOTE | 2018-03-28 14:52 | Discharge Summary ---
Orders not resulted at time of discharge: Pending orders 03/23/18 15:53 Culture,Anaerobic [RM] Routine 03/27/18 03:00 HIV-1&2 Antibody & p24 Ag Routine Hepatitis B Core Ab Total AM 0400 Hepatitis B Surface Antibody AM 0400 Hepatitis B Surface Antigen AM 0400 Hepatitis C Virus Antibody AM 0400 Date of Encounter: 03/28/18 Time of Encounter: 00:00 - Discharge Diagnosis (1) Abscess of hand, right Priority: Primary Status: Acute (2) Sepsis Priority: Primary Status: Acute Qualifiers: Sepsis type: methicillin resistant Staphylococcus aureus Qualified Code(s) : A41.02 - Sepsis due to Methicillin resistant Staphylococcus aureus (3) Compartment syndrome of right hand Priority: Primary Status: Acute Qualifiers: Encounter type: initial encounter Qualified Code(s): T79.A11A - Traumatic compartment syndrome of right upper extremity, initial encounter (4) Tobacco abuse Priority: Secondary Status: Chronic (5) History of intravenous drug abuse Priority: Secondary Status: Chronic Hospital course: Patient is a 47-year-old male with past medical history significant for IV drug abuse (methamphetamine) who presented to the ER on 03/23/18 due to right hand swelling/pain. Patient reported that his symptoms occurred approximately 4 days prior to admission and reported of going to [place] and was placed Keflex for cellulitis. Patient stated that symptoms did not improve and decided to come to the [facility] ER for further evaluation. During patients hospital stay, orthopedics was consulted with recommendations for Right hand fasciotomies with incision and drainage of deep abscess which was done on 03/23/18. Wound cultures were taken which were positive for MRSA. Patient was started on IV antibiotics and infectious disease was consulted with recommendations for a six-day week course of IV vancomycin. Due to patients history of IV drug abuse recommendations were made for patient to be discharged to retirement facility for IV antibiotic administration. While awaiting precertification for retirement facility patient left AGAINST MEDICAL ADVICE. - Time Spent with Patient Total time spent providing and/or coordinating discharge services: Less than 30 minutes - Discharge Medications Home Medications: Cephalexin [Keflex] 500 mg PO BID #14 capsule 03/21/18 [Rx] Allergies/Adverse Reactions: 3 Allergy/AdvReac Type Severity Reaction Status Date / Time No Known Allergies Allergy Verified 03/21/18 00:00 Date of admission: 03/23/18 13:44 Primary care physician: PCP NONE Consults: 03/25/18 12:34 Consult to Physical Therapy [CONS] Routine Comment: Evaluate, develop and implement POC Reason for Consult: Please see and eval re: R hand ROM Does patient have active BEDREST order?: No Is patient medically & hemodynamically stable?: Yes 03/25/18 19:05 Consult to Infectious Diseases [CONS] Routine Consulting Provider: Infectious Disease Diana Reason for Consult: Deep abscess of right hand Call Completed: Yes - Constitutional Vitals: Temp Pulse Resp BP Pulse Ox 98.4 F 94 16 145/79 98 03/28/18 11:33 03/28/18 11:33 03/28/18 11:33 03/28/18 11:33 03/28/18 11:33 General appearance: Present: cooperative, mild distress, A&O X 3, pleasant, underweight, answers questions appropriately Exam: Patient left AMA - Patient Status Disposition: Left Against Medical Advice Condition: Fair - Discharge Instructions Follow Up With: NONE,PCP [Primary Care Provider] - Suyapa Dawson [Family Provider] -
[2018-03-30 14:54] LABS: Hepatitis B Surface Antibody 86.63 mIU/mL
[2018-03-30 14:56] LABS: Hepatitis C Virus Antibody Reactive (Nonreactive)
== END 2018-03-28 12:20 | disposition left against medical advice (07) | DRG 710 ==
LOC: EMEROOARM 08:57 → 3NENU 13:44 → SUATTDRO 13:44 → 3NENU 14:10
PROVIDERS: ADMIT Student in an Organized Health Care Education/Training Program; ATTEND Hospitalist
PROC: ORTFASC (2018-03-23 18:25)

== ENCOUNTER 2021-12-21 14:56 | Inpatient (IN) ==
[2021-12-21 16:24] LABS: Basophils # 0.1 K/mcL (0.0-0.2); Basophils % 0.2 %; Eosinophils # 0.1 K/mcL (0.0-0.6); Eosinophils % 0.4 %; Hematocrit 31.6 % (37.5-50.1); Hemoglobin 10.5 g/dL (12.9-16.9); Lymphocytes # 2.7 K/mcL (0.6-4.6); Lymphocytes % 12.5 %; Mean Corpuscular HGB Conc 33.2 g/dL (31.6-35.5); Mean Corpuscular Hemoglobin 25.4 pg (28.0-33.3); Mean Corpuscular Volume 76.3 fL (83.0-100.0); Mean Platelet Volume 9.9 fL (9.4-12.4); Monocytes # 1.2 K/mcL (0.0-1.3); Monocytes % 5.7 %; Neutrophils # 17.1 K/mcL (1.6-8.9); Platelet Count 366 K/mcL (140-400); Red Blood Count 4.14 M/mcL (4.19-5.50); Red Cell Distribution Width 15.6 % (11.5-14.5); Segmented Neutrophils % 80.2 %; White Blood Count 21.3 K/mcL (4.3-11.1)
[2021-12-21 16:35] LABS: INR 1.4; Prothrombin Time 15.7 Seconds (9.4-12.1)
[2021-12-21 16:47] LABS: Alanine Aminotransferase 33 Units/L (7-52); Albumin 2.5 g/dL (3.5-5.7); Albumin/Globulin Ratio 0.5 (1.1-2.2); Alkaline Phosphatase 104 Units/L (34-104); Aspartate Amino Transferase 36 Units/L (13-39); BUN/Creatinine Ratio 21 (6-26); Bilirubin,Total 0.6 mg/dL (0.3-1.0); Blood Urea Nitrogen 13 mg/dL (6-20); Calcium 8.6 mg/dL (8.6-10.3); Carbon Dioxide 26 mEq/L (23-29); Chloride 100 mEq/L (98-107); Creatine Kinase < 10 Units/L (30-223); Ethanol < 10 mg/dL (Less than 10); Glucose 100 mg/dL (70-105); Magnesium 1.6 mg/dL (1.6-2.6); Osmolality,Calculated 274 (280-300); Potassium 3.4 mEq/L (3.5-5.1); Sodium 132 mEq/L (136-145); Total Protein 7.5 g/dL (6.4-8.9); eGFR For African Americans > 60 (> 60); eGFR For Non-African Americans > 60 (> 60)
[2021-12-21] MEDS ORDERED: Ondansetron 4 MG/2 ML VIAL IVP ONE (16:54)
[2021-12-21] MEDS ORDERED: Piperacillin/Tazobactam 3.375 GM in 0.9 % Sodium Chloride Mini Bag 100 ML IVPB ONE (16:54)
[2021-12-21] MEDS ORDERED: Ketorolac 30 MG/ML VIAL IVP ONE (16:54)
[2021-12-21] MEDS ORDERED: diazePAM 10 MG/2 ML SYRINGE IVP ONE (16:54)
[2021-12-21 16:55] LABS: Adenovirus Not Detected (Not Detect); Bordetella Pertussis Not Detected (Not Detect); Chlamydophila pneumoniae Not Detected (Not Detect); Coronavirus 229E Not Detected (Not Detect); Coronavirus HKU1 Not Detected (Not Detect); Coronavirus NL63 Not Detected (Not Detect); Coronavirus OC43 Not Detected (Not Detect); Human Metapneumovirus Not Detected (Not Detect); Human Rhinovirus/Enterovirus Not Detected (Not Detect); Influenza A Subtype 2009 H1 Not Detected (Not Detect); Influenza B Not Detected (Not Detect); Mycoplasma pneumoniae Not Detected (Not Detect); Parainfluenza Virus 1 Not Detected (Not Detect); Parainfluenza Virus 2 Not Detected (Not Detect); Parainfluenza Virus 3 Not Detected (Not Detect); Parainfluenza Virus 4 Not Detected (Not Detect); Respiratory Syncytial Virus Not Detected (Not Detect); SARS-CoV-2 Not Detected (Not Detect)
[2021-12-21] MEDS ORDERED: Naloxone 0.4 MG/ML INJ IVP PRN (19:46)
[2021-12-21] MEDS ORDERED: Ondansetron ODT 4 MG TAB.RAPDIS SL PRN (19:46)
[2021-12-21] MEDS ORDERED: Melatonin 3 MG TABLET PO PRN (19:46)
[2021-12-21 20:00] LABS: Bilirubin,Urine Negative (Negative); Blood,Urine Moderate (Negative); Clarity,Urine Clear (Clear); Color,Urine Yellow (Yellow); Glucose,Urine (UA) 100 mg/dL (Normal); Hyaline Casts,Urine Few per lpf (None Seen); Ketones,Urine Negative (Negative); Leukocyte Esterase,Urine Trace (Negative); Mucus,Urine Few per lpf (None-Few); Nitrite,Urine Negative (Negative); PH,Urine 6.5 pH Units (5.0-8.0); Protein,Urine 100 mg/dL (Neg-Trace); Squamous Epithelial Cell,Urine Few per hpf (None-Few)
[2021-12-21 20:12] LABS: Amphetamine Screen,Urine Negative ng/mL (Cutoff=1000); Barbiturate Screen,Urine Negative ng/mL (Cutoff=200); Benzodiazepines Screen,Urine Negative ng/mL (Cutoff=200); Cannabinoid Screen,Urine Positive ng/mL (Cutoff = 50); Cocaine Screen,Urine Negative ng/mL (Cutoff= 300); Opiate Screen,Urine Negative ng/mL (Cutoff=300); Phencyclidine Screen,Urine Negative ng/mL (Cutoff=25)
[2021-12-21] MEDS ORDERED: *HR* OxyCODONE Immed Rel 5 MG TABLET PO PRN (20:47)
[2021-12-21] MEDS: 0.9 % Sodium Chloride 1,000 ML IVC SCH (21:32)
[2021-12-21] MEDS ORDERED: Perflutren Lipid Microsphere 1.3 ML in 0.9 % Sodium Chloride 8.7 ML IVP PRN (22:31)
[2021-12-21] MEDS ORDERED: Nicotine 7 MG PATCH.TD24 TD PRN (22:32)
[2021-12-21] MEDS ORDERED: *HR* Buprenorphine HCl 2 MG SUBLINGUAL TABLET SL PRN (23:54)
[2021-12-21] MEDS ORDERED: *HR* Buprenorphine HCl 2 MG SUBLINGUAL TABLET SL ONE (23:54)
[2021-12-22] MEDS: Cefepime HCl 2,000 MG in 0.9 % Sodium Chloride 10 ML IVP SCH ×3 (00:08→17:31)
[2021-12-22 02:29] LABS: Hepatitis B Surface Antigen Nonreactive (Nonreactive)
[2021-12-22 02:59] LABS: Hepatitis A Antibody IgM Nonreactive (Nonreactive)
[2021-12-22 03:12] LABS: Hepatitis B Core IgM Reactive (Nonreactive)
[2021-12-22 04:36] LABS: Hepatitis C Virus Antibody Reactive (Nonreactive)
[2021-12-22 05:33] LABS: Basophils # 0.1 K/mcL (0.0-0.2); Basophils % 0.4 %; Eosinophils # 0.2 K/mcL (0.0-0.6); Eosinophils % 1.2 %; Hematocrit 34.4 % (37.5-50.1); Immature Granulocytes % 0.9 % (0-4); Lymphocytes # 2.7 K/mcL (0.6-4.6); Mean Corpuscular Hemoglobin 24.6 pg (28.0-33.3); Monocytes # 0.9 K/mcL (0.0-1.3); Monocytes % 5.9 %; Neutrophils # 11.9 K/mcL (1.6-8.9); Platelet Count 394 K/mcL (140-400); Red Blood Count 4.47 M/mcL (4.19-5.50); Red Cell Distribution Width 15.9 % (11.5-14.5); Segmented Neutrophils % 74.6 %; White Blood Count 15.9 K/mcL (4.3-11.1)
[2021-12-22] MEDS ORDERED: Nicotine 14 MG PATCH.TD24 TD PRN (05:38)
[2021-12-22 05:52] LABS: Alanine Aminotransferase 33 Units/L (7-52); Albumin 2.5 g/dL (3.5-5.7); Albumin/Globulin Ratio 0.5 (1.1-2.2); Alkaline Phosphatase 118 Units/L (34-104); Aspartate Amino Transferase 40 Units/L (13-39); BUN/Creatinine Ratio 25 (6-26); Bilirubin,Total 0.5 mg/dL (0.3-1.0); Blood Urea Nitrogen 18 mg/dL (6-20); Calcium 8.4 mg/dL (8.6-10.3); Carbon Dioxide 25 mEq/L (23-29); Chloride 102 mEq/L (98-107); Globulin 5.1 g/dL (2.4-3.5); Glucose 120 mg/dL (70-105); Osmolality,Calculated 279 (280-300); Potassium 4.2 mEq/L (3.5-5.1); Sodium 133 mEq/L (136-145); Total Protein 7.6 g/dL (6.4-8.9); eGFR For African Americans > 60 (> 60); eGFR For Non-African Americans > 60 (> 60)
[2021-12-22] MEDS: Acetaminophen 325 MG TABLET PO PRN ×2 (13:02→20:04)
[2021-12-22] MEDS: 0.9 % Sodium Chloride 1,000 ML IVC SCH (13:03)
[2021-12-22] MEDS ORDERED: Iopamidol - 370 500 ML MLS IVP ONE (13:31)
[2021-12-22] MEDS: Ketorolac 30 MG/ML VIAL IVP PRN (21:55)
[2021-12-23] MEDS: Cefepime HCl 2,000 MG in 0.9 % Sodium Chloride 10 ML IVP SCH ×2 (00:16→01:26)
[2021-12-23] MEDS: Acetaminophen 325 MG TABLET PO PRN ×2 (03:57→21:57)
[2021-12-23] MEDS: 0.9 % Sodium Chloride 1,000 ML IVC SCH (03:58)
[2021-12-23 05:46] LABS: Hematocrit 32.9 % (37.5-50.1); Hemoglobin 10.5 g/dL (12.9-16.9); Mean Corpuscular HGB Conc 31.9 g/dL (31.6-35.5); Mean Corpuscular Hemoglobin 24.6 pg (28.0-33.3); Mean Corpuscular Volume 77.2 fL (83.0-100.0); Mean Platelet Volume 10.3 fL (9.4-12.4); Platelet Count 385 K/mcL (140-400); Red Blood Count 4.26 M/mcL (4.19-5.50); Red Cell Distribution Width 16.1 % (11.5-14.5); White Blood Count 15.5 K/mcL (4.3-11.1)
[2021-12-23 06:06] LABS: BUN/Creatinine Ratio 22 (6-26); Blood Urea Nitrogen 13 mg/dL (6-20); Calcium 8.6 mg/dL (8.6-10.3); Carbon Dioxide 27 mEq/L (23-29); Chloride 101 mEq/L (98-107); Glucose 91 mg/dL (70-105); Osmolality,Calculated 276 (280-300); Potassium 4.1 mEq/L (3.5-5.1); Sodium 133 mEq/L (136-145); Vancomycin,Trough 10 mcg/mL (5-10); eGFR For African Americans > 60 (> 60); eGFR For Non-African Americans > 60 (> 60)
[2021-12-23] MEDS ORDERED: Vancomycin 1,250 MG/262.5 ML IV.SOLN IVPB SCH (07:00)
[2021-12-23] MEDS: *HR* Buprenorphine HCl 2 MG SUBLINGUAL TABLET SL SCH (07:41)
[2021-12-23] MEDS ORDERED: Gadolinium Contrast Agent (WT Based) IV PRN ×2 (08:16→08:48)
[2021-12-23 09:28] LABS: C-Reactive Protein 98 mg/L (Less than 10)
[2021-12-23] MEDS: levoFLOXacin 750 MG/150 ML 750 MG/150 ML BAG IVPB SCH (10:14)
[2021-12-23] MEDS ORDERED: GADOBUTROL 30 MMOL/30 ML VIAL IVP ONE (11:07)
[2021-12-23] MEDS: Dexmedetomidine HCl 400 MCG/100 ML MLS IVC SCH (13:45)
[2021-12-23] MEDS: Ertapenem 1,000 MG in 0.9 % Sodium Chloride Mini Bag 100 ML IVPB SCH (15:48)
[2021-12-23] MEDS: Ketorolac 30 MG/ML VIAL IVP PRN ×2 (16:01→21:59)
[2021-12-23] MEDS: *HR* Heparin 5,000 UNIT/ML VIAL SQ SCH (16:55)
[2021-12-23 19:19] LABS: Estimated Average Glucose 148 mg/dl; Hemoglobin A1C 6.8 %
[2021-12-24] MEDS: 0.9 % Sodium Chloride 1,000 ML IVC SCH ×3 (01:29→17:49)
[2021-12-24 03:19] LABS: Hematocrit 28.9 % (37.5-50.1); Hemoglobin 9.2 g/dL (12.9-16.9); Mean Corpuscular HGB Conc 31.8 g/dL (31.6-35.5); Mean Corpuscular Hemoglobin 24.5 pg (28.0-33.3); Mean Corpuscular Volume 77.1 fL (83.0-100.0); Mean Platelet Volume 10.5 fL (9.4-12.4); Platelet Count 364 K/mcL (140-400); Red Blood Count 3.75 M/mcL (4.19-5.50); Red Cell Distribution Width 15.9 % (11.5-14.5); White Blood Count 10.1 K/mcL (4.3-11.1)
[2021-12-24 03:37] LABS: BUN/Creatinine Ratio 22 (6-26); Blood Urea Nitrogen 13 mg/dL (6-20); Calcium 8.3 mg/dL (8.6-10.3); Carbon Dioxide 26 mEq/L (23-29); Chloride 102 mEq/L (98-107); Glucose 90 mg/dL (70-105); Osmolality,Calculated 276 (280-300); Potassium 3.8 mEq/L (3.5-5.1); Sodium 133 mEq/L (136-145); eGFR For African Americans > 60 (> 60); eGFR For Non-African Americans > 60 (> 60)
[2021-12-24] MEDS: *HR* Heparin 5,000 UNIT/ML VIAL SQ SCH ×2 (06:00→17:51)
[2021-12-24] MEDS: *HR* Buprenorphine HCl 2 MG SUBLINGUAL TABLET SL SCH (09:50)
[2021-12-24] MEDS: Ertapenem 1,000 MG in 0.9 % Sodium Chloride Mini Bag 100 ML IVPB SCH (09:50)
[2021-12-24] MEDS: levoFLOXacin 750 MG/150 ML 750 MG/150 ML BAG IVPB SCH (09:51)
[2021-12-24] MEDS ORDERED: *HR* OxyCODONE/APAP 5/325 TABLET PO PRN (10:16)
[2021-12-24 18:37] LABS: Basophils # 0.1 K/mcL (0.0-0.2); Basophils % 0.4 %; Eosinophils # 0.1 K/mcL (0.0-0.6); Eosinophils % 0.4 %; Hematocrit 27.1 % (37.5-50.1); Hemoglobin 8.7 g/dL (12.9-16.9); Immature Granulocytes % 0.5 % (0-4); Lymphocytes # 2.4 K/mcL (0.6-4.6); Lymphocytes % 20.5 %; Mean Corpuscular HGB Conc 32.1 g/dL (31.6-35.5); Mean Corpuscular Hemoglobin 24.4 pg (28.0-33.3); Mean Corpuscular Volume 76.1 fL (83.0-100.0); Mean Platelet Volume 9.3 fL (9.4-12.4); Monocytes # 0.9 K/mcL (0.0-1.3); Monocytes % 7.8 %; Neutrophils # 8.3 K/mcL (1.6-8.9); Platelet Count 381 K/mcL (140-400); Red Blood Count 3.56 M/mcL (4.19-5.50); Red Cell Distribution Width 15.7 % (11.5-14.5); Segmented Neutrophils % 70.4 %; White Blood Count 11.7 K/mcL (4.3-11.1)
[2021-12-24 18:45] LABS: INR 1.4; Prothrombin Time 16.1 Seconds (9.4-12.1)
[2021-12-24 18:48] LABS: Activated Partial Thrombo Time 29.5 Seconds (26.0-36.0)
[2021-12-24 18:56] LABS: BUN/Creatinine Ratio 17 (6-26); Blood Urea Nitrogen 10 mg/dL (6-20); Calcium 7.9 mg/dL (8.6-10.3); Carbon Dioxide 25 mEq/L (23-29); Chloride 99 mEq/L (98-107); Chol/HDL Ratio 5.8 (0-4.9); Cholesterol 81 mg/dL (< 200); Glucose 125 mg/dL (70-105); HDL Cholesterol 14 mg/dL (40-59); LDL Cholesterol,Calculated 48 mg/dL (< 100); Osmolality,Calculated 271 (280-300); Potassium 3.8 mEq/L (3.5-5.1); Sodium 130 mEq/L (136-145); Triglycerides 93 mg/dL (< 150); eGFR For African Americans > 60 (> 60); eGFR For Non-African Americans > 60 (> 60)
[2021-12-24] MEDS: Chlorhexidine Rinse 15 ML MOUTHWASH MM SCH (20:22)
[2021-12-24] MEDS: Acetaminophen 325 MG TABLET PO PRN (20:22)
[2021-12-24] MEDS: Ketorolac 30 MG/ML VIAL IVP PRN (20:29)
[2021-12-25] MEDS: Chlorhexidine Rinse 15 ML MOUTHWASH MM SCH ×2 (05:07→20:28)
[2021-12-25] MEDS: 0.9 % Sodium Chloride 1,000 ML IVC SCH (05:09)
[2021-12-25] MEDS ORDERED: Aspirin 81 MG TAB.CHEW PO ONE (06:00)
[2021-12-25] MEDS ORDERED: CeFAZolin Syr 2,000MG/20 ML 2,000 MG/20 ML SYRINGE IVPB ONE (06:00)
[2021-12-25] MEDS ORDERED: NiCARdipine 2.5 MG/10 ML Syringe IVPB ONE (06:22)
[2021-12-25] MEDS ORDERED: DOBUTamine 1,000 MG/250 ML BAG ONE (06:22)
[2021-12-25] MEDS ORDERED: *HR* FentaNYL (PF) 1,000 MCG/20 ML VIAL ONE (06:29)
[2021-12-25] MEDS ORDERED: *HR* Midazolam HCl 5 MG/5 ML VIAL IVP ONE (06:29)
[2021-12-25] MEDS ORDERED: *HR* Rocuronium Bromide 50 MG/5 ML VIAL ONE (06:31)
[2021-12-25] MEDS ORDERED: *HR* Norepinephrine 4 MG/4 ML VIAL IVC ONE (06:31)
[2021-12-25] MEDS ORDERED: niCARdipine 20 MG/200 ML MLS IVC ONE (06:31)
[2021-12-25] MEDS ORDERED: Tranexamic Acid 1,000 MG/10 ML VIAL ONE (06:34)
[2021-12-25] MEDS ORDERED: *HR* Etomidate 20 MG/10 ML AMPUL IVP ONE (06:34)
[2021-12-25] MEDS ORDERED: Calcium Gluconate 1,000 MG/10 ML VIAL ONE (06:35)
[2021-12-25] MEDS ORDERED: Protamine Sulfate 250 MG/25 ML VIAL IVP ONE (06:35)
[2021-12-25] MEDS ORDERED: dexmedeTOMIDine in 0.9 % NaCL 80 MCG/20 ML MLS ONE (06:51)
[2021-12-25] MEDS ORDERED: Heparin 1,000 UNITS/500 mL 500 ML ONE ×2 (06:52→06:55)
[2021-12-25] MEDS ORDERED: Papaverine 60 MG/2 ML VIAL IVP ONE (06:52)
[2021-12-25] MEDS ORDERED: *HR* Heparin 10,000 UNIT/10 ML VIAL ONE (06:55)
[2021-12-25] MEDS ORDERED: 0.9 % Sodium Chloride 2,000 ML ONE (06:55)
[2021-12-25] MEDS ORDERED: Iopamidol - 370 200 ML INFUS..BTL ONE (06:55)
[2021-12-25] MEDS ORDERED: Nitroglycerin 1,000 MCG/5 ML VIAL IV ONE (06:56)
[2021-12-25] MEDS ORDERED: Norepinephrine 4 MG in 0.9 % Sodium Chloride 250 ML IVC PRN (07:00)
[2021-12-25] MEDS ORDERED: Buckersberg's Blood Cardioplegia PF ONE (07:00)
[2021-12-25] MEDS ORDERED: Heparin 15,000 UNIT in 0.9 % Sodium Chloride 500 ML IV ONE (07:00)
[2021-12-25] MEDS ORDERED: del Nido Cardioplegia Solution PF ONE ×2 (07:00)
[2021-12-25] MEDS ORDERED: *HR* Midazolam HCl 2 MG/2 ML VIAL ONE (07:27)
[2021-12-25] MEDS ORDERED: *HR* FentaNYL (PF) 100 MCG/2 ML VIAL ONE (07:27)
[2021-12-25 10:00] LABS: ABG Base Excess -1 mEq/L (-2 to 3); ABG Chloride 101 mEq/L (98-107); ABG Glucose 91 mg/dL (60-95); ABG HCO3 25 mEq/L (21-27); ABG Ionized Calcium 1.17 mmol/L (1.15-1.35); ABG Oxygen Saturation 100 % (95-98); ABG PCO2 48 mmHg (35-45); ABG PH 7.33 pH Units (7.32-7.45); ABG PO2 480 mmHg (85-104); ABG TCO2 27 mEq/L (20-26)
[2021-12-25] MEDS ORDERED: Iopamidol - 300 100 ML INFUS..BTL ONE (10:29)
[2021-12-25 10:49] LABS: ABG Base Excess -3 mEq/L (-2 to 3); ABG Chloride 102 mEq/L (98-107); ABG Glucose 98 mg/dL (60-95); ABG HCO3 22 mEq/L (21-27); ABG Oxygen Saturation 100 % (95-98); ABG PCO2 37 mmHg (35-45); ABG PH 7.37 pH Units (7.32-7.45); ABG PO2 176 mmHg (85-104); ABG TCO2 23 mEq/L (20-26)
[2021-12-25] MEDS ORDERED: Albumin Human 25% 25 GM/100 ML IV.SOLN IVPB ONE (11:04)
[2021-12-25] MEDS ORDERED: *HR* Phenylephrine 10 MG/ML VIAL IVC ONE (11:04)
[2021-12-25] MEDS ORDERED: Lidocaine 2% Syringe 100 MG/5 ML IVP ONE (11:04)
[2021-12-25] MEDS ORDERED: *HR* Heparin 10,000 UNIT/10 ML VIAL IR ONE (11:04)
[2021-12-25] MEDS ORDERED: Tranexamic Acid 1,000 MG/10 ML VIAL IR ONE (11:04)
[2021-12-25] MEDS ORDERED: Mannitol 25% vial 12.5 GM/50 ML VIAL IVPB ONE (11:04)
[2021-12-25] MEDS ORDERED: *HR* Magnesium Sulfate 2 GM/50 ML PIGGYBACK IVPB ONE (11:04)
[2021-12-25 11:05] LABS: ABG Base Excess -2 mEq/L (-2 to 3); ABG Chloride 98 mEq/L (98-107); ABG Glucose 104 mg/dL (60-95); ABG HCO3 23 mEq/L (21-27); ABG Ionized Calcium 0.94 mmol/L (1.15-1.35); ABG Oxygen Saturation 100 % (95-98); ABG PCO2 38 mmHg (35-45); ABG PH 7.38 pH Units (7.32-7.45); ABG PO2 603 mmHg (85-104); ABG TCO2 24 mEq/L (20-26)
[2021-12-25] MEDS ORDERED: Potassium Chloride 40 MEQ/200 ML BAG IVPB PRN (11:13)
[2021-12-25] MEDS ORDERED: Ondansetron 4 MG/2 ML VIAL IVP PRN (11:13)
[2021-12-25] MEDS ORDERED: *HR* Dextrose 50 % in Water (Syg) 50 ML SYRINGE IVP PRN (11:13)
[2021-12-25] MEDS ORDERED: Insulin Regular, Human 100 UNIT/ML IV PRN (11:13)
[2021-12-25] MEDS ORDERED: Calcium Gluconate 1gm/50mL 1 GM/50 ML BAG IVPB PRN (11:13)
[2021-12-25 12:07] LABS: ABG Base Excess -7 mEq/L (-2 to 3); ABG Chloride 105 mEq/L (98-107); ABG Glucose 126 mg/dL (60-95); ABG HCO3 20 mEq/L (21-27); ABG Ionized Calcium 0.96 mmol/L (1.15-1.35); ABG Oxygen Saturation 100 % (95-98); ABG PCO2 43 mmHg (35-45); ABG PH 7.27 pH Units (7.32-7.45); ABG PO2 619 mmHg (85-104); ABG TCO2 21 mEq/L (20-26)
[2021-12-25 12:35] LABS: ABG Base Excess -6 mEq/L (-2 to 3); ABG Chloride 103 mEq/L (98-107); ABG Glucose 101 mg/dL (60-95); ABG HCO3 20 mEq/L (21-27); ABG Ionized Calcium 0.99 mmol/L (1.15-1.35); ABG Oxygen Saturation 100 % (95-98); ABG PCO2 42 mmHg (35-45); ABG PH 7.28 pH Units (7.32-7.45); ABG PO2 590 mmHg (85-104); ABG TCO2 21 mEq/L (20-26)
[2021-12-25] MEDS ORDERED: Ketorolac 30 MG/ML VIAL ONE (13:15)
[2021-12-25 13:42] LABS: HCV Quant Log 7.07 log IU/mL
[2021-12-25] MEDS: Norepinephrine 4 MG/254 ML IV.SOLN IVC SCH (13:45)
[2021-12-25] MEDS ORDERED: Albumin Human 5% 37.5 GM/750 ML IV.SOLN ONE (14:00)
[2021-12-25] MEDS: Albumin Human 5% 12.5 GM/250 ML IV.SOLN IVPB PRN ×6 (14:00→20:20)
[2021-12-25 14:10] LABS: ABG Base Excess -4 mEq/L (-2 to 3); ABG HCO3 23 mEq/L (21-27); ABG Oxygen Saturation 94 % (95-98); ABG PCO2 50 mmHg (35-45); ABG PH 7.26 pH Units (7.32-7.45); ABG PO2 84 mmHg (85-104); ABG TCO2 24 mEq/L (20-26); Blood Gas Modality AF; Blood Gas VT 500 cc
[2021-12-25 14:16] LABS: Hematocrit 24.8 % (37.5-50.1); Mean Corpuscular HGB Conc 32.3 g/dL (31.6-35.5); Mean Corpuscular Hemoglobin 25.3 pg (28.0-33.3); Mean Corpuscular Volume 78.5 fL (83.0-100.0); Mean Platelet Volume 9.5 fL (9.4-12.4); Platelet Count 205 K/mcL (140-400); Red Blood Count 3.16 M/mcL (4.19-5.50); Red Cell Distribution Width 15.9 % (11.5-14.5)
[2021-12-25 14:20] LABS: White Blood Count 36.3 K/mcL (4.3-11.1)
[2021-12-25 14:26] LABS: INR 1.7; Prothrombin Time 19.3 Seconds (9.4-12.1)
[2021-12-25] MEDS: niCARdipine 20 MG/200 ML MLS IVC SCH ×3 (14:26→17:06)
[2021-12-25] MEDS: Nicotine 14 MG PATCH.TD24 TD SCH (14:26)
[2021-12-25] MEDS: levoFLOXacin 750 MG/150 ML 750 MG/150 ML BAG IVPB SCH (14:26)
[2021-12-25] MEDS: Ertapenem 1,000 MG in 0.9 % Sodium Chloride Mini Bag 100 ML IVPB SCH (14:26)
[2021-12-25] MEDS: DOBUTamine 1,000 MG/250 ML BAG IVC SCH (14:26)
[2021-12-25 14:29] LABS: Activated Partial Thrombo Time 35.6 Seconds (26.0-36.0)
[2021-12-25 14:38] LABS: BUN/Creatinine Ratio 20 (6-26); Blood Urea Nitrogen 12 mg/dL (6-20); Calcium 9.5 mg/dL (8.6-10.3); Carbon Dioxide 24 mEq/L (23-29); Chloride 106 mEq/L (98-107); Glucose 98 mg/dL (70-105); Magnesium 2.9 mg/dL (1.6-2.6); Osmolality,Calculated 288 (280-300); Potassium 3.7 mEq/L (3.5-5.1); Sodium 139 mEq/L (136-145); eGFR For African Americans > 60 (> 60); eGFR For Non-African Americans > 60 (> 60)
[2021-12-25 14:41] LABS: ABG Base Excess -7 mEq/L (-2 to 3); ABG Chloride 104 mEq/L (98-107); ABG Glucose 85 mg/dL (60-95); ABG HCO3 18 mEq/L (21-27); ABG Ionized Calcium 1.61 mmol/L (1.15-1.35); ABG Oxygen Saturation 93 % (95-98); ABG PCO2 36 mmHg (35-45); ABG PH 7.31 pH Units (7.32-7.45); ABG PO2 73 mmHg (85-104); ABG TCO2 19 mEq/L (20-26)
[2021-12-25 15:01] LABS: Lymphocytes # 0.7 K/mcL (0.6-4.6); Monocytes # 0.4 K/mcL (0.0-1.3); Neutrophils # 34.9 K/mcL (1.6-8.9); Platelet Estimate Normal (Normal)
[2021-12-25] MEDS: Gabapentin 300 MG CAPSULE PO SCH ×2 (15:04→20:14)
[2021-12-25] MEDS: Pantoprazole 40 MG VIAL IVP SCH (15:05)
[2021-12-25 15:07] LABS: HBV Quant by PCR NOT DETECTED
[2021-12-25] MEDS: CeFAZolin 2 GM/120 ML BAG IVPB SCH (16:48)
[2021-12-25] MEDS: *HR* FentaNYL (PF) 100 MCG/2 ML VIAL IVP PRN (18:45)
[2021-12-25 19:27] LABS: ABG Base Excess -7 mEq/L (-2 to 3); ABG HCO3 21 mEq/L (21-27); ABG Oxygen Saturation 92 % (95-98); ABG PCO2 53 mmHg (35-45); ABG PO2 77 mmHg (85-104); ABG TCO2 23 mEq/L (20-26); Blood Gas Pressure Support 10 cm H2O
[2021-12-25] MEDS: *HR* OxyCODONE/APAP 5/325 TABLET PO PRN (21:10)
[2021-12-25 21:18] LABS: Hematocrit 21.6 % (37.5-50.1)
[2021-12-25] MEDS ORDERED: 0.9 % Sodium Chloride 250 ML ONE (21:41)
[2021-12-25 23:24] LABS: ABG Base Excess 0 mEq/L (-2 to 3); ABG HCO3 24 mEq/L (21-27); ABG Oxygen Saturation 99 % (95-98); ABG PCO2 36 mmHg (35-45); ABG PH 7.43 pH Units (7.32-7.45); ABG PO2 127 mmHg (85-104); ABG TCO2 25 mEq/L (20-26); Blood Gas VT 500 cc
[2021-12-25 23:59] LABS: ABG Base Excess 0 mEq/L (-2 to 3); ABG HCO3 24 mEq/L (21-27); ABG Oxygen Saturation 99 % (95-98); ABG PCO2 36 mmHg (35-45); ABG PH 7.44 pH Units (7.32-7.45); ABG PO2 124 mmHg (85-104); ABG TCO2 26 mEq/L (20-26); Blood Gas Pressure Support 10 cm H2O
[2021-12-26] MEDS: CeFAZolin 2 GM/120 ML BAG IVPB SCH ×3 (00:32→14:57)
[2021-12-26] MEDS: *HR* FentaNYL (PF) 100 MCG/2 ML VIAL IVP PRN (01:22)
[2021-12-26] MEDS: Norepinephrine 4 MG/254 ML IV.SOLN IVC SCH (02:39)
[2021-12-26] MEDS: Dexmedetomidine HCl 400 MCG/100 ML MLS IVC SCH (03:29)
[2021-12-26 04:17] LABS: ABG Base Excess -1 mEq/L (-2 to 3); ABG HCO3 24 mEq/L (21-27); ABG Oxygen Saturation 99 % (95-98); ABG PCO2 37 mmHg (35-45); ABG PH 7.42 pH Units (7.32-7.45); ABG PO2 126 mmHg (85-104); ABG TCO2 25 mEq/L (20-26); Blood Gas VT 500 cc
[2021-12-26 04:23] LABS: Basophils # 0.1 K/mcL (0.0-0.2); Basophils % 0.3 %; Eosinophils # 0.1 K/mcL (0.0-0.6); Eosinophils % 0.5 %; Hematocrit 28.6 % (37.5-50.1); Immature Granulocytes % 0.7 % (0-4); Lymphocytes # 2.3 K/mcL (0.6-4.6); Lymphocytes % 13.5 %; Mean Corpuscular HGB Conc 32.9 g/dL (31.6-35.5); Mean Corpuscular Hemoglobin 26.3 pg (28.0-33.3); Mean Corpuscular Volume 80.1 fL (83.0-100.0); Mean Platelet Volume 10.1 fL (9.4-12.4); Monocytes # 0.9 K/mcL (0.0-1.3); Monocytes % 5.4 %; Platelet Count 198 K/mcL (140-400); Red Blood Count 3.57 M/mcL (4.19-5.50); Segmented Neutrophils % 79.6 %
[2021-12-26 04:27] LABS: Alanine Aminotransferase 60 Units/L (7-52); Albumin 3.2 g/dL (3.5-5.7); Albumin/Globulin Ratio 1.1 (1.1-2.2); Alkaline Phosphatase 60 Units/L (34-104); Aspartate Amino Transferase 178 Units/L (13-39); BUN/Creatinine Ratio 24 (6-26); Bilirubin,Total 0.8 mg/dL (0.3-1.0); Blood Urea Nitrogen 17 mg/dL (6-20); Calcium 8.4 mg/dL (8.6-10.3); Carbon Dioxide 25 mEq/L (23-29); Chloride 109 mEq/L (98-107); Globulin 2.8 g/dL (2.4-3.5); Glucose 132 mg/dL (70-105); Magnesium 2.1 mg/dL (1.6-2.6); Osmolality,Calculated 295 (280-300); Sodium 141 mEq/L (136-145); eGFR For African Americans > 60 (> 60); eGFR For Non-African Americans > 60 (> 60)
[2021-12-26 04:33] LABS: Hemoglobin 9.4 g/dL (12.9-16.9); Neutrophils # 13.5 K/mcL (1.6-8.9); White Blood Count 16.9 K/mcL (4.3-11.1)
[2021-12-26 04:35] LABS: INR 1.6; Prothrombin Time 18.1 Seconds (9.4-12.1)
[2021-12-26 04:37] LABS: Activated Partial Thrombo Time 36.8 Seconds (26.0-36.0)
[2021-12-26] MEDS: Nicotine 14 MG PATCH.TD24 TD SCH (07:39)
[2021-12-26] MEDS: levoFLOXacin 750 MG/150 ML 750 MG/150 ML BAG IVPB SCH (07:39)
[2021-12-26] MEDS: Gabapentin 300 MG CAPSULE PO SCH ×3 (07:39→19:39)
[2021-12-26] MEDS: Chlorhexidine Rinse 15 ML MOUTHWASH MM SCH ×2 (07:39→19:39)
[2021-12-26] MEDS: Aspirin 81 MG TAB.CHEW PO SCH (07:39)
[2021-12-26] MEDS: Pantoprazole 40 MG VIAL IVP SCH (07:40)
[2021-12-26] MEDS: Ertapenem 1,000 MG in 0.9 % Sodium Chloride Mini Bag 100 ML IVPB SCH (07:40)
[2021-12-26 07:42] LABS: ABG Base Excess 1 mEq/L (-2 to 3); ABG HCO3 25 mEq/L (21-27); ABG Oxygen Saturation 99 % (95-98); ABG PCO2 38 mmHg (35-45); ABG PH 7.43 pH Units (7.32-7.45); ABG PO2 147 mmHg (85-104); ABG TCO2 26 mEq/L (20-26); Blood Gas Modality CPAP/PS; Blood Gas Pressure Support 10 cm H2O; Blood Gas VT 35 cc
[2021-12-26] MEDS: *HR* Enoxaparin 40 MG/0.4 ML SYRINGE SQ SCH (07:46)
[2021-12-26] MEDS: *HR* OxyCODONE/APAP 5/325 TABLET PO PRN ×4 (08:02→20:17)
[2021-12-26 09:45] LABS: ABG Base Excess 0 mEq/L (-2 to 3); ABG HCO3 25 mEq/L (21-27); ABG Oxygen Saturation 99 % (95-98); ABG PCO2 38 mmHg (35-45); ABG PH 7.42 pH Units (7.32-7.45); ABG PO2 135 mmHg (85-104); ABG TCO2 26 mEq/L (20-26)
[2021-12-26] MEDS: DOBUTamine 1,000 MG/250 ML BAG IVC SCH (10:19)
[2021-12-26] MEDS: niCARdipine 20 MG/200 ML MLS IVC SCH ×4 (10:19→14:55)
[2021-12-26] MEDS ORDERED: D5% in Water 1,000 ML IVC PRN (11:21)
[2021-12-26] MEDS ORDERED: *HR* Dextrose 50 % in Water (Syg) 50 ML SYRINGE IVP PRN (11:21)
[2021-12-26] MEDS ORDERED: Dextrose Gel 15 GM/37.5 ML TUBE PO PRN ×2 (11:21)
[2021-12-26] MEDS: Insulin LISPRO 300 UNITS/3 ML VIAL SUBQ SCH ×2 (12:00→16:11)
[2021-12-26] MEDS: Bumetanide 1 MG/4 ML VIAL IVP SCH ×2 (12:04→16:11)
[2021-12-26 15:06] LABS: HBV Quant Interpretation NOT DETECTED (Not Detected); HBV Quant Log by PCR NOT DETECTED log IU/mL; HCV Quant Interpretation DETECTED (Not Detected)
[2021-12-26] MEDS ORDERED: Insulin LISPRO 300 UNITS/3 ML VIAL SUBQ SCH (21:00)
[2021-12-27] MEDS: CeFAZolin 2 GM/120 ML BAG IVPB SCH ×2 (00:23→07:55)
[2021-12-27] MEDS: *HR* OxyCODONE/APAP 5/325 TABLET PO PRN ×4 (00:27→19:46)
[2021-12-27 03:53] LABS: Basophils % 0.2 %; Eosinophils # 0.1 K/mcL (0.0-0.6); Eosinophils % 0.4 %; Hematocrit 29.5 % (37.5-50.1); Hemoglobin 9.8 g/dL (12.9-16.9); Immature Granulocytes % 0.5 % (0-4); Lymphocytes # 2.4 K/mcL (0.6-4.6); Lymphocytes % 13.4 %; Mean Corpuscular HGB Conc 33.2 g/dL (31.6-35.5); Mean Corpuscular Volume 78.2 fL (83.0-100.0); Mean Platelet Volume 10.3 fL (9.4-12.4); Monocytes # 0.8 K/mcL (0.0-1.3); Monocytes % 4.8 %; Neutrophils # 14.3 K/mcL (1.6-8.9); Platelet Count 210 K/mcL (140-400); Red Blood Count 3.77 M/mcL (4.19-5.50); Red Cell Distribution Width 17.4 % (11.5-14.5); Segmented Neutrophils % 80.7 %; White Blood Count 17.7 K/mcL (4.3-11.1)
[2021-12-27 04:09] LABS: BUN/Creatinine Ratio 24 (6-26); Blood Urea Nitrogen 14 mg/dL (6-20); Calcium 8.2 mg/dL (8.6-10.3); Carbon Dioxide 29 mEq/L (23-29); Chloride 101 mEq/L (98-107); Glucose 108 mg/dL (70-105); Magnesium 1.4 mg/dL (1.6-2.6); Osmolality,Calculated 285 (280-300); Potassium 3.2 mEq/L (3.5-5.1); Sodium 137 mEq/L (136-145); eGFR For African Americans > 60 (> 60); eGFR For Non-African Americans > 60 (> 60)
[2021-12-27] MEDS: *HR* Enoxaparin 40 MG/0.4 ML SYRINGE SQ SCH (05:38)
[2021-12-27] MEDS: niCARdipine 20 MG/200 ML MLS IVC SCH ×3 (06:14→07:55)
[2021-12-27] MEDS: Nicotine 14 MG PATCH.TD24 TD SCH ×2 (07:54→10:17)
[2021-12-27] MEDS: Pantoprazole 40 MG VIAL IVP SCH ×2 (07:55→10:17)
[2021-12-27] MEDS: Insulin LISPRO 300 UNITS/3 ML VIAL SUBQ SCH ×4 (07:55→21:21)
[2021-12-27] MEDS: Aspirin 81 MG TAB.CHEW PO SCH ×2 (07:55→10:16)
[2021-12-27] MEDS: Gabapentin 300 MG CAPSULE PO SCH ×4 (07:55→21:21)
[2021-12-27] MEDS: Chlorhexidine Rinse 15 ML MOUTHWASH MM SCH ×3 (07:55→21:21)
[2021-12-27] MEDS: Ertapenem 1,000 MG in 0.9 % Sodium Chloride Mini Bag 100 ML IVPB SCH (07:56)
[2021-12-27] MEDS: Bumetanide 1 MG/4 ML VIAL IVP SCH ×2 (07:56→18:16)
[2021-12-27] MEDS: levoFLOXacin 750 MG/150 ML 750 MG/150 ML BAG IVPB SCH (07:57)
[2021-12-27] MEDS ORDERED: *HR* Dextrose 50 % in Water (Syg) 50 ML SYRINGE IVP PRN (08:54)
[2021-12-27] MEDS ORDERED: Naloxone 0.4 MG/ML INJ IVP PRN (08:54)
[2021-12-27] MEDS ORDERED: Ondansetron ODT 4 MG TAB.RAPDIS SL PRN (08:54)
[2021-12-27] MEDS ORDERED: Ondansetron 4 MG/2 ML VIAL IVP PRN (08:54)
[2021-12-27] MEDS ORDERED: D5% in Water 1,000 ML IVC PRN (08:54)
[2021-12-27] MEDS ORDERED: Insulin Regular, Human 100 UNIT/ML IV PRN (08:54)
[2021-12-27] MEDS ORDERED: Dextrose Gel 15 GM/37.5 ML TUBE PO PRN ×2 (08:54)
[2021-12-27] MEDS ORDERED: Potassium Chloride 40 MEQ/200 ML BAG IVPB PRN (08:54)
[2021-12-27] MEDS ORDERED: levoFLOXacin 750 MG/150 ML 750 MG/150 ML BAG IVPB SCH (09:00)
[2021-12-28] MEDS: *HR* Enoxaparin 40 MG/0.4 ML SYRINGE SQ SCH (04:42)
[2021-12-28] MEDS: *HR* OxyCODONE/APAP 5/325 TABLET PO PRN ×4 (04:45→20:07)
[2021-12-28 05:36] LABS: Basophils # 0.1 K/mcL (0.0-0.2); Basophils % 0.2 %; Eosinophils # 0.1 K/mcL (0.0-0.6); Eosinophils % 0.2 %; Hematocrit 31.8 % (37.5-50.1); Hemoglobin 10.5 g/dL (12.9-16.9); Immature Granulocytes % 0.6 % (0-4); Lymphocytes # 2.8 K/mcL (0.6-4.6); Lymphocytes % 13.7 %; Mean Corpuscular Hemoglobin 26.1 pg (28.0-33.3); Mean Corpuscular Volume 79.1 fL (83.0-100.0); Mean Platelet Volume 10.7 fL (9.4-12.4); Monocytes # 1.1 K/mcL (0.0-1.3); Monocytes % 5.4 %; Neutrophils # 16.5 K/mcL (1.6-8.9); Platelet Count 227 K/mcL (140-400); Red Blood Count 4.02 M/mcL (4.19-5.50); Red Cell Distribution Width 17.8 % (11.5-14.5); Segmented Neutrophils % 79.9 %; White Blood Count 20.7 K/mcL (4.3-11.1)
[2021-12-28 05:53] LABS: BUN/Creatinine Ratio 23 (6-26); Blood Urea Nitrogen 13 mg/dL (6-20); Calcium 8.2 mg/dL (8.6-10.3); Carbon Dioxide 33 mEq/L (23-29); Chloride 98 mEq/L (98-107); Glucose 95 mg/dL (70-105); Magnesium 1.6 mg/dL (1.6-2.6); Osmolality,Calculated 280 (280-300); Potassium 3.6 mEq/L (3.5-5.1); Sodium 135 mEq/L (136-145); eGFR For African Americans > 60 (> 60); eGFR For Non-African Americans > 60 (> 60)
[2021-12-28] MEDS: Insulin LISPRO 300 UNITS/3 ML VIAL SUBQ SCH ×4 (07:28→20:08)
[2021-12-28] MEDS: Pantoprazole 40 MG VIAL IVP SCH (08:12)
[2021-12-28] MEDS: Chlorhexidine Rinse 15 ML MOUTHWASH MM SCH ×2 (08:12→20:07)
[2021-12-28] MEDS: Bumetanide 1 MG/4 ML VIAL IVP SCH ×2 (08:12→18:09)
[2021-12-28] MEDS: Ertapenem 1,000 MG in 0.9 % Sodium Chloride Mini Bag 100 ML IVPB SCH (08:13)
[2021-12-28] MEDS: Aspirin 81 MG TAB.CHEW PO SCH (08:13)
[2021-12-28] MEDS: Gabapentin 300 MG CAPSULE PO SCH ×3 (08:13→20:07)
[2021-12-28] MEDS: levoFLOXacin 750 MG/150 ML 750 MG/150 ML BAG IVPB SCH (08:14)
[2021-12-28] MEDS: Nicotine 14 MG PATCH.TD24 TD SCH (08:14)
[2021-12-28] MEDS: Melatonin 3 MG TABLET PO PRN (20:07)
[2021-12-29 04:04] LABS: Basophils # 0.1 K/mcL (0.0-0.2); Basophils % 0.4 %; Eosinophils # 0.2 K/mcL (0.0-0.6); Eosinophils % 1.3 %; Hematocrit 34.1 % (37.5-50.1); Hemoglobin 11.1 g/dL (12.9-16.9); Immature Granulocytes % 0.6 % (0-4); Lymphocytes # 2.9 K/mcL (0.6-4.6); Lymphocytes % 17.5 %; Mean Corpuscular HGB Conc 32.6 g/dL (31.6-35.5); Mean Corpuscular Hemoglobin 25.9 pg (28.0-33.3); Mean Corpuscular Volume 79.5 fL (83.0-100.0); Mean Platelet Volume 10.1 fL (9.4-12.4); Monocytes % 6.3 %; Neutrophils # 12.1 K/mcL (1.6-8.9); Platelet Count 240 K/mcL (140-400); Red Blood Count 4.29 M/mcL (4.19-5.50); Red Cell Distribution Width 18.6 % (11.5-14.5); Segmented Neutrophils % 73.9 %; White Blood Count 16.3 K/mcL (4.3-11.1)
[2021-12-29 04:23] LABS: BUN/Creatinine Ratio 27 (6-26); Blood Urea Nitrogen 16 mg/dL (6-20); Calcium 8.5 mg/dL (8.6-10.3); Carbon Dioxide 34 mEq/L (23-29); Chloride 96 mEq/L (98-107); Glucose 94 mg/dL (70-105); Magnesium 1.5 mg/dL (1.6-2.6); Osmolality,Calculated 283 (280-300); Potassium 3.4 mEq/L (3.5-5.1); Sodium 136 mEq/L (136-145); eGFR For African Americans > 60 (> 60); eGFR For Non-African Americans > 60 (> 60)
[2021-12-29] MEDS: *HR* Enoxaparin 40 MG/0.4 ML SYRINGE SQ SCH (06:39)
[2021-12-29] MEDS: Insulin LISPRO 300 UNITS/3 ML VIAL SUBQ SCH ×4 (07:50→20:51)
[2021-12-29] MEDS: Chlorhexidine Rinse 15 ML MOUTHWASH MM SCH ×2 (08:27→20:50)
[2021-12-29] MEDS: levoFLOXacin 750 MG/150 ML 750 MG/150 ML BAG IVPB SCH (08:27)
[2021-12-29] MEDS: Ertapenem 1,000 MG in 0.9 % Sodium Chloride Mini Bag 100 ML IVPB SCH (08:27)
[2021-12-29] MEDS: Bumetanide 1 MG/4 ML VIAL IVP SCH ×2 (08:28→17:39)
[2021-12-29] MEDS: Pantoprazole 40 MG VIAL IVP SCH (08:28)
[2021-12-29] MEDS: Gabapentin 300 MG CAPSULE PO SCH ×3 (08:28→20:50)
[2021-12-29] MEDS: *HR* OxyCODONE/APAP 5/325 TABLET PO PRN ×3 (08:28→23:17)
[2021-12-29] MEDS: Nicotine 14 MG PATCH.TD24 TD SCH (08:29)
[2021-12-29] MEDS: Aspirin 81 MG TAB.CHEW PO SCH (08:29)
[2021-12-29] MEDS ORDERED: Furosemide 40 MG/4 ML VIAL IVP SCH (18:00)
[2021-12-29] MEDS: Melatonin 3 MG TABLET PO PRN (20:50)
[2021-12-30 05:20] LABS: Basophils # 0.1 K/mcL (0.0-0.2); Basophils % 0.6 %; Eosinophils # 0.3 K/mcL (0.0-0.6); Eosinophils % 2.3 %; Hemoglobin 10.9 g/dL (12.9-16.9); Immature Granulocytes % 0.8 % (0-4); Lymphocytes # 3.3 K/mcL (0.6-4.6); Lymphocytes % 24.8 %; Mean Corpuscular HGB Conc 32.1 g/dL (31.6-35.5); Mean Corpuscular Hemoglobin 26.1 pg (28.0-33.3); Mean Corpuscular Volume 81.3 fL (83.0-100.0); Mean Platelet Volume 10.5 fL (9.4-12.4); Monocytes % 7.6 %; Neutrophils # 8.5 K/mcL (1.6-8.9); Platelet Count 260 K/mcL (140-400); Red Blood Count 4.18 M/mcL (4.19-5.50); Red Cell Distribution Width 18.9 % (11.5-14.5); Segmented Neutrophils % 63.9 %; White Blood Count 13.4 K/mcL (4.3-11.1)
[2021-12-30 05:32] LABS: BUN/Creatinine Ratio 27 (6-26); Blood Urea Nitrogen 18 mg/dL (6-20); Calcium 8.5 mg/dL (8.6-10.3); Carbon Dioxide 31 mEq/L (23-29); Chloride 99 mEq/L (98-107); Glucose 108 mg/dL (70-105); Magnesium 1.7 mg/dL (1.6-2.6); Osmolality,Calculated 282 (280-300); Potassium 3.7 mEq/L (3.5-5.1); Sodium 135 mEq/L (136-145); eGFR For African Americans > 60 (> 60); eGFR For Non-African Americans > 60 (> 60)
[2021-12-30] MEDS: *HR* Enoxaparin 40 MG/0.4 ML SYRINGE SQ SCH (05:52)
[2021-12-30] MEDS: Insulin LISPRO 300 UNITS/3 ML VIAL SUBQ SCH ×4 (09:14→20:27)
[2021-12-30] MEDS: levoFLOXacin 750 MG/150 ML 750 MG/150 ML BAG IVPB SCH (09:14)
[2021-12-30] MEDS: Ertapenem 1,000 MG in 0.9 % Sodium Chloride Mini Bag 100 ML IVPB SCH (09:15)
[2021-12-30] MEDS: Aspirin 81 MG TAB.CHEW PO SCH (09:15)
[2021-12-30] MEDS: Bumetanide 1 MG/4 ML VIAL IVP SCH ×2 (09:16→17:12)
[2021-12-30] MEDS: Gabapentin 300 MG CAPSULE PO SCH ×3 (09:16→20:26)
[2021-12-30] MEDS: Chlorhexidine Rinse 15 ML MOUTHWASH MM SCH ×2 (09:16→20:27)
[2021-12-30] MEDS: Pantoprazole 40 MG VIAL IVP SCH (09:16)
[2021-12-30] MEDS: Nicotine 14 MG PATCH.TD24 TD SCH (09:17)
[2021-12-30] MEDS: *HR* Buprenorphine HCl 2 MG SUBLINGUAL TABLET SL SCH (14:38)
[2021-12-30] MEDS: Melatonin 3 MG TABLET PO PRN (20:26)
[2021-12-30] MEDS: Acetaminophen 325 MG TABLET PO PRN (20:27)
[2021-12-31] MEDS: *HR* Enoxaparin 40 MG/0.4 ML SYRINGE SQ SCH (05:02)
[2021-12-31 05:35] LABS: Hematocrit 36.4 % (37.5-50.1); Hemoglobin 11.7 g/dL (12.9-16.9); Mean Corpuscular HGB Conc 32.1 g/dL (31.6-35.5); Mean Corpuscular Hemoglobin 25.8 pg (28.0-33.3); Mean Corpuscular Volume 80.2 fL (83.0-100.0); Mean Platelet Volume 10.4 fL (9.4-12.4); Platelet Count 325 K/mcL (140-400); Red Blood Count 4.54 M/mcL (4.19-5.50); White Blood Count 14.8 K/mcL (4.3-11.1)
[2021-12-31 05:49] LABS: BUN/Creatinine Ratio 30 (6-26); Blood Urea Nitrogen 19 mg/dL (6-20); Calcium 8.8 mg/dL (8.6-10.3); Carbon Dioxide 31 mEq/L (23-29); Chloride 99 mEq/L (98-107); Glucose 110 mg/dL (70-105); Osmolality,Calculated 285 (280-300); Potassium 3.6 mEq/L (3.5-5.1); Sodium 136 mEq/L (136-145); eGFR For African Americans > 60 (> 60); eGFR For Non-African Americans > 60 (> 60)
[2021-12-31] MEDS: Ertapenem 1,000 MG in 0.9 % Sodium Chloride Mini Bag 100 ML IVPB SCH (09:07)
[2021-12-31] MEDS: Bumetanide 1 MG/4 ML VIAL IVP SCH (09:08)
[2021-12-31] MEDS: Pantoprazole 40 MG VIAL IVP SCH (09:08)
[2021-12-31] MEDS: Gabapentin 300 MG CAPSULE PO SCH ×3 (09:15→19:41)
[2021-12-31] MEDS: *HR* Buprenorphine HCl 2 MG SUBLINGUAL TABLET SL SCH (09:15)
[2021-12-31] MEDS: Aspirin 81 MG TAB.CHEW PO SCH (09:15)
[2021-12-31] MEDS: levoFLOXacin 750 MG/150 ML 750 MG/150 ML BAG IVPB SCH (09:17)
[2021-12-31] MEDS: Insulin LISPRO 300 UNITS/3 ML VIAL SUBQ SCH ×4 (09:18→19:41)
[2021-12-31] MEDS: Chlorhexidine Rinse 15 ML MOUTHWASH MM SCH ×2 (09:18→19:41)
[2021-12-31] MEDS: Nicotine 14 MG PATCH.TD24 TD SCH (09:22)
[2021-12-31] MEDS ORDERED: *HR* LORazepam 0.5 MG TABLET PO ONE (16:18)
[2021-12-31] MEDS: Bumetanide 1 MG TABLET PO SCH (18:19)
[2022-01-01] MEDS: *HR* Enoxaparin 40 MG/0.4 ML SYRINGE SQ SCH (05:47)
[2022-01-01] MEDS: Insulin LISPRO 300 UNITS/3 ML VIAL SUBQ SCH ×4 (08:08→19:38)
[2022-01-01] MEDS: Chlorhexidine Rinse 15 ML MOUTHWASH MM SCH ×2 (08:23→19:38)
[2022-01-01] MEDS: Gabapentin 300 MG CAPSULE PO SCH ×3 (08:24→19:40)
[2022-01-01] MEDS: Ertapenem 1,000 MG in 0.9 % Sodium Chloride Mini Bag 100 ML IVPB SCH (08:24)
[2022-01-01] MEDS: Pantoprazole 40 MG VIAL IVP SCH (08:24)
[2022-01-01] MEDS: Aspirin 81 MG TAB.CHEW PO SCH (08:24)
[2022-01-01] MEDS: Bumetanide 1 MG TABLET PO SCH (08:24)
[2022-01-01] MEDS: levoFLOXacin 750 MG/150 ML 750 MG/150 ML BAG IVPB SCH (08:25)
[2022-01-01] MEDS: *HR* Buprenorphine HCl 2 MG SUBLINGUAL TABLET SL SCH (08:25)
[2022-01-01] MEDS: Nicotine 14 MG PATCH.TD24 TD SCH (08:25)
[2022-01-01 09:05] LABS: Hematocrit 35.8 % (37.5-50.1); Hemoglobin 11.4 g/dL (12.9-16.9); Mean Corpuscular HGB Conc 31.8 g/dL (31.6-35.5); Mean Corpuscular Hemoglobin 25.9 pg (28.0-33.3); Mean Corpuscular Volume 81.2 fL (83.0-100.0); Mean Platelet Volume 10.2 fL (9.4-12.4); Platelet Count 349 K/mcL (140-400); Red Blood Count 4.41 M/mcL (4.19-5.50); White Blood Count 16.2 K/mcL (4.3-11.1)
[2022-01-01 09:20] LABS: BUN/Creatinine Ratio 30 (6-26); Blood Urea Nitrogen 17 mg/dL (6-20); Calcium 8.9 mg/dL (8.6-10.3); Carbon Dioxide 31 mEq/L (23-29); Chloride 97 mEq/L (98-107); Glucose 104 mg/dL (70-105); Magnesium 1.7 mg/dL (1.6-2.6); Osmolality,Calculated 280 (280-300); Potassium 4.1 mEq/L (3.5-5.1); Sodium 134 mEq/L (136-145); eGFR For African Americans > 60 (> 60); eGFR For Non-African Americans > 60 (> 60)
[2022-01-02] MEDS: *HR* Enoxaparin 40 MG/0.4 ML SYRINGE SQ SCH (05:02)
[2022-01-02] MEDS: *HR* Buprenorphine HCl 2 MG SUBLINGUAL TABLET SL SCH (08:43)
[2022-01-02] MEDS: Aspirin 81 MG TAB.CHEW PO SCH (08:43)
[2022-01-02] MEDS: Gabapentin 300 MG CAPSULE PO SCH ×3 (08:43→23:59)
[2022-01-02] MEDS: Bumetanide 1 MG TABLET PO SCH (08:43)
[2022-01-02] MEDS: levoFLOXacin 750 MG/150 ML 750 MG/150 ML BAG IVPB SCH (08:43)
[2022-01-02] MEDS: Nicotine 14 MG PATCH.TD24 TD SCH (08:44)
[2022-01-02] MEDS: Ertapenem 1,000 MG in 0.9 % Sodium Chloride Mini Bag 100 ML IVPB SCH (08:44)
[2022-01-02] MEDS: Pantoprazole 40 MG VIAL IVP SCH (08:46)
[2022-01-02] MEDS: Chlorhexidine Rinse 15 ML MOUTHWASH MM SCH ×2 (08:51→23:59)
[2022-01-02] MEDS: Insulin LISPRO 300 UNITS/3 ML VIAL SUBQ SCH ×3 (09:34→17:57)
[2022-01-02] MEDS: Melatonin 3 MG TABLET PO PRN (23:57)
[2022-01-03] MEDS: Insulin LISPRO 300 UNITS/3 ML VIAL SUBQ SCH ×4 (00:05→21:19)
[2022-01-03] MEDS: *HR* Enoxaparin 40 MG/0.4 ML SYRINGE SQ SCH (06:30)
[2022-01-03] MEDS: Nicotine 14 MG PATCH.TD24 TD SCH (07:58)
[2022-01-03] MEDS: Gabapentin 300 MG CAPSULE PO SCH ×3 (07:59→21:19)
[2022-01-03] MEDS: *HR* Buprenorphine HCl 2 MG SUBLINGUAL TABLET SL SCH (07:59)
[2022-01-03] MEDS: Pantoprazole 40 MG VIAL IVP SCH (07:59)
[2022-01-03] MEDS: Aspirin 81 MG TAB.CHEW PO SCH (07:59)
[2022-01-03] MEDS: Chlorhexidine Rinse 15 ML MOUTHWASH MM SCH (07:59)
[2022-01-03] MEDS: Bumetanide 1 MG TABLET PO SCH (07:59)
[2022-01-03] MEDS: levoFLOXacin 750 MG/150 ML 750 MG/150 ML BAG IVPB SCH (08:00)
[2022-01-03] MEDS: Ertapenem 1,000 MG in 0.9 % Sodium Chloride Mini Bag 100 ML IVPB SCH (08:00)
[2022-01-03 11:18] LABS: Influenza A PCR Negative (Negative); Influenza B PCR Negative (Negative); Resp. Syncytial Virus PCR Negative (Negative)
[2022-01-03 11:51] LABS: SARS-CoV-2 by PCR (In House) Positive (Negative)
[2022-01-03 14:32] LABS: Basophils # 0.1 K/mcL (0.0-0.2); Basophils % 0.5 %; Eosinophils # 0.5 K/mcL (0.0-0.6); Eosinophils % 3.4 %; Hematocrit 34.2 % (37.5-50.1); Hemoglobin 10.9 g/dL (12.9-16.9); Immature Granulocytes % 0.4 % (0-4); Lymphocytes # 3.7 K/mcL (0.6-4.6); Lymphocytes % 27.4 %; Mean Corpuscular HGB Conc 31.9 g/dL (31.6-35.5); Mean Corpuscular Hemoglobin 25.3 pg (28.0-33.3); Mean Corpuscular Volume 79.5 fL (83.0-100.0); Mean Platelet Volume 9.8 fL (9.4-12.4); Monocytes # 1.5 K/mcL (0.0-1.3); Neutrophils # 7.7 K/mcL (1.6-8.9); Platelet Count 401 K/mcL (140-400); Red Cell Distribution Width 18.2 % (11.5-14.5); Segmented Neutrophils % 57.3 %; White Blood Count 13.4 K/mcL (4.3-11.1)
[2022-01-03 15:10] LABS: BUN/Creatinine Ratio 31 (6-26); Blood Urea Nitrogen 18 mg/dL (6-20); Calcium 8.4 mg/dL (8.6-10.3); Carbon Dioxide 26 mEq/L (23-29); Chloride 99 mEq/L (98-107); Glucose 105 mg/dL (70-105); Magnesium 1.5 mg/dL (1.6-2.6); Osmolality,Calculated 280 (280-300); Phosphorous 2.9 mg/dL (2.7-4.5); Potassium 3.7 mEq/L (3.5-5.1); Sodium 134 mEq/L (136-145); eGFR For African Americans > 60 (> 60); eGFR For Non-African Americans > 60 (> 60)
[2022-01-03 16:10] LABS: C-Reactive Protein 44 mg/L (Less than 10)
[2022-01-03] MEDS: Acetaminophen 325 MG TABLET PO PRN (21:22)
[2022-01-04] MEDS: *HR* Enoxaparin 40 MG/0.4 ML SYRINGE SQ SCH (05:15)
[2022-01-04] MEDS: Insulin LISPRO 300 UNITS/3 ML VIAL SUBQ SCH ×4 (07:20→22:37)
[2022-01-04] MEDS: *HR* Buprenorphine HCl 2 MG SUBLINGUAL TABLET SL SCH (08:32)
[2022-01-04] MEDS: Gabapentin 300 MG CAPSULE PO SCH ×3 (08:32→22:37)
[2022-01-04] MEDS: Aspirin 81 MG TAB.CHEW PO SCH (08:32)
[2022-01-04] MEDS: Bumetanide 1 MG TABLET PO SCH (08:33)
[2022-01-04] MEDS: Ertapenem 1,000 MG in 0.9 % Sodium Chloride Mini Bag 100 ML IVPB SCH (08:33)
[2022-01-04] MEDS: levoFLOXacin 750 MG/150 ML 750 MG/150 ML BAG IVPB SCH (08:33)
[2022-01-04] MEDS: Nicotine 14 MG PATCH.TD24 TD SCH (08:33)
[2022-01-04] MEDS: Melatonin 3 MG TABLET PO PRN (22:37)
[2022-01-04] MEDS: Acetaminophen 325 MG TABLET PO PRN (22:37)
[2022-01-05] MEDS: *HR* Enoxaparin 40 MG/0.4 ML SYRINGE SQ SCH (05:11)
[2022-01-05 05:39] LABS: Hematocrit 32.9 % (37.5-50.1); Hemoglobin 10.4 g/dL (12.9-16.9); Mean Corpuscular HGB Conc 31.6 g/dL (31.6-35.5); Mean Corpuscular Hemoglobin 25.6 pg (28.0-33.3); Mean Platelet Volume 10.1 fL (9.4-12.4); Platelet Count 426 K/mcL (140-400); Red Blood Count 4.06 M/mcL (4.19-5.50); Red Cell Distribution Width 18.1 % (11.5-14.5); White Blood Count 11.9 K/mcL (4.3-11.1)
[2022-01-05 06:53] LABS: BUN/Creatinine Ratio 27 (6-26); Blood Urea Nitrogen 17 mg/dL (6-20); Calcium 8.5 mg/dL (8.6-10.3); Carbon Dioxide 31 mEq/L (23-29); Chloride 99 mEq/L (98-107); Glucose 111 mg/dL (70-105); Magnesium 1.6 mg/dL (1.6-2.6); Osmolality,Calculated 280 (280-300); Potassium 3.4 mEq/L (3.5-5.1); Sodium 134 mEq/L (136-145); eGFR For African Americans > 60 (> 60); eGFR For Non-African Americans > 60 (> 60)
[2022-01-05] MEDS: Bumetanide 1 MG TABLET PO SCH (09:01)
[2022-01-05] MEDS: *HR* Buprenorphine HCl 2 MG SUBLINGUAL TABLET SL SCH (09:01)
[2022-01-05] MEDS: Gabapentin 300 MG CAPSULE PO SCH ×3 (09:01→20:22)
[2022-01-05] MEDS: Nicotine 14 MG PATCH.TD24 TD SCH (09:01)
[2022-01-05] MEDS: Insulin LISPRO 300 UNITS/3 ML VIAL SUBQ SCH ×4 (09:02→20:24)
[2022-01-05] MEDS: Aspirin 81 MG TAB.CHEW PO SCH (09:02)
[2022-01-05] MEDS: Metoprolol XL (24 HR) Succ 25 MG TAB.ER.24H PO SCH (09:02)
[2022-01-05] MEDS: levoFLOXacin 750 MG/150 ML 750 MG/150 ML BAG IVPB SCH (09:03)
[2022-01-05] MEDS: Ertapenem 1,000 MG in 0.9 % Sodium Chloride Mini Bag 100 ML IVPB SCH (09:03)
[2022-01-05] MEDS: Acetaminophen 325 MG TABLET PO PRN (20:22)
[2022-01-06 06:17] LABS: BUN/Creatinine Ratio 34 (6-26); Blood Urea Nitrogen 20 mg/dL (6-20); Calcium 8.6 mg/dL (8.6-10.3); Carbon Dioxide 32 mEq/L (23-29); Chloride 98 mEq/L (98-107); Glucose 99 mg/dL (70-105); Osmolality,Calculated 281 (280-300); Sodium 134 mEq/L (136-145); eGFR For African Americans > 60 (> 60); eGFR For Non-African Americans > 60 (> 60)
[2022-01-06] MEDS: *HR* Buprenorphine HCl 2 MG SUBLINGUAL TABLET SL SCH (10:26)
[2022-01-06] MEDS: Aspirin 81 MG TAB.CHEW PO SCH (10:26)
[2022-01-06] MEDS: Gabapentin 300 MG CAPSULE PO SCH ×3 (10:26→21:28)
[2022-01-06] MEDS: Metoprolol XL (24 HR) Succ 25 MG TAB.ER.24H PO SCH (10:26)
[2022-01-06] MEDS: Bumetanide 1 MG TABLET PO SCH (10:26)
[2022-01-06] MEDS: Ertapenem 1,000 MG in 0.9 % Sodium Chloride Mini Bag 100 ML IVPB SCH (10:27)
[2022-01-06] MEDS: Nicotine 14 MG PATCH.TD24 TD SCH (10:28)
[2022-01-06] MEDS: Insulin LISPRO 300 UNITS/3 ML VIAL SUBQ SCH ×2 (10:29→12:02)
[2022-01-06] MEDS: *HR* Enoxaparin 40 MG/0.4 ML SYRINGE SQ SCH (10:29)
[2022-01-06] MEDS: levoFLOXacin 750 MG/150 ML 750 MG/150 ML BAG IVPB SCH (12:17)
[2022-01-06] MEDS ORDERED: 0.9 % Sodium Chloride 1,000 ML IVC ONE (21:02)
[2022-01-07] MEDS: *HR* Enoxaparin 40 MG/0.4 ML SYRINGE SQ SCH (06:08)
[2022-01-07] MEDS: Gabapentin 300 MG CAPSULE PO SCH ×3 (08:13→21:24)
[2022-01-07] MEDS: Nicotine 14 MG PATCH.TD24 TD SCH (08:13)
[2022-01-07] MEDS: Aspirin 81 MG TAB.CHEW PO SCH (08:13)
[2022-01-07] MEDS: Metoprolol XL (24 HR) Succ 25 MG TAB.ER.24H PO SCH (08:13)
[2022-01-07] MEDS: *HR* Buprenorphine HCl 2 MG SUBLINGUAL TABLET SL SCH (08:13)
[2022-01-07] MEDS: Bumetanide 1 MG TABLET PO SCH (08:13)
[2022-01-07] MEDS: Ertapenem 1,000 MG in 0.9 % Sodium Chloride Mini Bag 100 ML IVPB SCH (08:14)
[2022-01-07] MEDS: levoFLOXacin 750 MG/150 ML 750 MG/150 ML BAG IVPB SCH (08:14)
[2022-01-07] MEDS: Melatonin 3 MG TABLET PO PRN (21:23)
[2022-01-08] MEDS: *HR* Enoxaparin 40 MG/0.4 ML SYRINGE SQ SCH (05:06)
[2022-01-08] MEDS: Ertapenem 1,000 MG in 0.9 % Sodium Chloride Mini Bag 100 ML IVPB SCH (09:30)
[2022-01-08] MEDS: Nicotine 14 MG PATCH.TD24 TD SCH (09:35)
[2022-01-08] MEDS: Metoprolol XL (24 HR) Succ 25 MG TAB.ER.24H PO SCH (09:36)
[2022-01-08] MEDS: Bumetanide 1 MG TABLET PO SCH (09:36)
[2022-01-08] MEDS: *HR* Buprenorphine HCl 2 MG SUBLINGUAL TABLET SL SCH (09:36)
[2022-01-08] MEDS: Gabapentin 300 MG CAPSULE PO SCH ×3 (09:36→20:34)
[2022-01-08] MEDS: Aspirin 81 MG TAB.CHEW PO SCH (09:37)
[2022-01-08] MEDS: levoFLOXacin 750 MG/150 ML 750 MG/150 ML BAG IVPB SCH (10:41)
[2022-01-09] MEDS: *HR* Enoxaparin 40 MG/0.4 ML SYRINGE SQ SCH ×2 (06:13→22:04)
[2022-01-09] MEDS: Ertapenem 1,000 MG in 0.9 % Sodium Chloride Mini Bag 100 ML IVPB SCH (08:42)
[2022-01-09] MEDS: levoFLOXacin 750 MG/150 ML 750 MG/150 ML BAG IVPB SCH (08:42)
[2022-01-09] MEDS: Nicotine 14 MG PATCH.TD24 TD SCH (08:48)
[2022-01-09] MEDS: Metoprolol XL (24 HR) Succ 25 MG TAB.ER.24H PO SCH (08:48)
[2022-01-09] MEDS: Gabapentin 300 MG CAPSULE PO SCH ×3 (08:48→19:38)
[2022-01-09] MEDS: Aspirin 81 MG TAB.CHEW PO SCH (08:48)
[2022-01-09] MEDS: *HR* Buprenorphine HCl 2 MG SUBLINGUAL TABLET SL SCH (08:49)
[2022-01-09] MEDS ORDERED: Bumetanide 1 MG TABLET PO SCH (09:00)
[2022-01-10 05:37] LABS: Hematocrit 31.4 % (37.5-50.1); Hemoglobin 9.9 g/dL (12.9-16.9); Mean Corpuscular HGB Conc 31.5 g/dL (31.6-35.5); Mean Corpuscular Hemoglobin 25.4 pg (28.0-33.3); Mean Corpuscular Volume 80.7 fL (83.0-100.0); Mean Platelet Volume 9.6 fL (9.4-12.4); Platelet Count 411 K/mcL (140-400); Red Blood Count 3.89 M/mcL (4.19-5.50); Red Cell Distribution Width 18.5 % (11.5-14.5); White Blood Count 12.2 K/mcL (4.3-11.1)
[2022-01-10 06:42] LABS: BUN/Creatinine Ratio 26 (6-26); Blood Urea Nitrogen 16 mg/dL (6-20); Calcium 7.4 mg/dL (8.6-10.3); Carbon Dioxide 29 mEq/L (23-29); Chloride 101 mEq/L (98-107); Glucose 97 mg/dL (70-105); Magnesium 1.5 mg/dL (1.6-2.6); Osmolality,Calculated 283 (280-300); Potassium 4.2 mEq/L (3.5-5.1); Sodium 136 mEq/L (136-145); eGFR For African Americans > 60 (> 60); eGFR For Non-African Americans > 60 (> 60)
[2022-01-10] MEDS: Metoprolol XL (24 HR) Succ 25 MG TAB.ER.24H PO SCH (09:13)
[2022-01-10] MEDS: *HR* Buprenorphine HCl 2 MG SUBLINGUAL TABLET SL SCH (09:14)
[2022-01-10] MEDS: Gabapentin 300 MG CAPSULE PO SCH ×3 (09:14→22:11)
[2022-01-10] MEDS: Aspirin 81 MG TAB.CHEW PO SCH (09:14)
[2022-01-10] MEDS: Nicotine 14 MG PATCH.TD24 TD SCH (09:14)
[2022-01-10] MEDS: levoFLOXacin 750 MG/150 ML 750 MG/150 ML BAG IVPB SCH (09:21)
[2022-01-10] MEDS: Ertapenem 1,000 MG in 0.9 % Sodium Chloride Mini Bag 100 ML IVPB SCH (12:05)
[2022-01-11] MEDS: *HR* Enoxaparin 40 MG/0.4 ML SYRINGE SQ SCH (06:46)
[2022-01-11] MEDS: levoFLOXacin 750 MG/150 ML 750 MG/150 ML BAG IVPB SCH (08:58)
[2022-01-11] MEDS: Ertapenem 1,000 MG in 0.9 % Sodium Chloride Mini Bag 100 ML IVPB SCH (08:59)
[2022-01-11] MEDS: *HR* Buprenorphine HCl 2 MG SUBLINGUAL TABLET SL SCH (09:01)
[2022-01-11] MEDS: Metoprolol XL (24 HR) Succ 25 MG TAB.ER.24H PO SCH (09:01)
[2022-01-11] MEDS: Gabapentin 300 MG CAPSULE PO SCH ×3 (09:01→22:37)
[2022-01-11] MEDS: Aspirin 81 MG TAB.CHEW PO SCH (09:01)
[2022-01-11] MEDS: Nicotine 14 MG PATCH.TD24 TD SCH (09:02)
[2022-01-11] MEDS: Melatonin 3 MG TABLET PO PRN (22:37)
[2022-01-12] MEDS: levoFLOXacin 750 MG/150 ML 750 MG/150 ML BAG IVPB SCH (10:35)
[2022-01-12] MEDS: Ertapenem 1,000 MG in 0.9 % Sodium Chloride Mini Bag 100 ML IVPB SCH (10:36)
[2022-01-12] MEDS: *HR* Enoxaparin 40 MG/0.4 ML SYRINGE SQ SCH (10:37)
[2022-01-12] MEDS: Metoprolol XL (24 HR) Succ 25 MG TAB.ER.24H PO SCH (10:37)
[2022-01-12] MEDS: Aspirin 81 MG TAB.CHEW PO SCH (10:37)
[2022-01-12] MEDS: Nicotine 14 MG PATCH.TD24 TD SCH (10:37)
[2022-01-12] MEDS: *HR* Buprenorphine HCl 2 MG SUBLINGUAL TABLET SL SCH (10:37)
[2022-01-12] MEDS: Gabapentin 300 MG CAPSULE PO SCH ×3 (10:37→21:49)
[2022-01-12 11:05] LABS: Hematocrit 32.9 % (37.5-50.1); Hemoglobin 10.6 g/dL (12.9-16.9); Mean Corpuscular HGB Conc 32.2 g/dL (31.6-35.5); Mean Corpuscular Hemoglobin 25.7 pg (28.0-33.3); Mean Corpuscular Volume 79.9 fL (83.0-100.0); Mean Platelet Volume 9.3 fL (9.4-12.4); Platelet Count 371 K/mcL (140-400); Red Blood Count 4.12 M/mcL (4.19-5.50); Red Cell Distribution Width 18.4 % (11.5-14.5); White Blood Count 11.2 K/mcL (4.3-11.1)
[2022-01-12 11:27] LABS: BUN/Creatinine Ratio 22 (6-26); Blood Urea Nitrogen 15 mg/dL (6-20); Calcium 8.2 mg/dL (8.6-10.3); Carbon Dioxide 28 mEq/L (23-29); Chloride 102 mEq/L (98-107); Glucose 98 mg/dL (70-105); Osmolality,Calculated 279 (280-300); Potassium 4.1 mEq/L (3.5-5.1); Sodium 134 mEq/L (136-145); eGFR For African Americans > 60 (> 60); eGFR For Non-African Americans > 60 (> 60)
[2022-01-13] MEDS: *HR* Enoxaparin 40 MG/0.4 ML SYRINGE SQ SCH (05:56)
[2022-01-13] MEDS: Ertapenem 1,000 MG in 0.9 % Sodium Chloride Mini Bag 100 ML IVPB SCH (09:53)
[2022-01-13] MEDS: Gabapentin 300 MG CAPSULE PO SCH ×3 (09:59→19:33)
[2022-01-13] MEDS: Metoprolol XL (24 HR) Succ 25 MG TAB.ER.24H PO SCH (09:59)
[2022-01-13] MEDS: Aspirin 81 MG TAB.CHEW PO SCH (09:59)
[2022-01-13] MEDS: *HR* Buprenorphine HCl 2 MG SUBLINGUAL TABLET SL SCH (10:00)
[2022-01-13] MEDS: Nicotine 14 MG PATCH.TD24 TD SCH (10:01)
[2022-01-13] MEDS: levoFLOXacin 750 MG/150 ML 750 MG/150 ML BAG IVPB SCH (10:54)
[2022-01-14] MEDS: *HR* Enoxaparin 40 MG/0.4 ML SYRINGE SQ SCH (05:54)
[2022-01-14] MEDS: Metoprolol XL (24 HR) Succ 25 MG TAB.ER.24H PO SCH (08:06)
[2022-01-14] MEDS: *HR* Buprenorphine HCl 2 MG SUBLINGUAL TABLET SL SCH (08:06)
[2022-01-14] MEDS: Aspirin 81 MG TAB.CHEW PO SCH (08:06)
[2022-01-14] MEDS: Gabapentin 300 MG CAPSULE PO SCH ×3 (08:06→22:24)
[2022-01-14] MEDS: Ertapenem 1,000 MG in 0.9 % Sodium Chloride Mini Bag 100 ML IVPB SCH (08:07)
[2022-01-14] MEDS: Nicotine 14 MG PATCH.TD24 TD SCH (08:15)
[2022-01-14] MEDS: levoFLOXacin 750 MG/150 ML 750 MG/150 ML BAG IVPB SCH (09:36)
[2022-01-15] MEDS: *HR* Enoxaparin 40 MG/0.4 ML SYRINGE SQ SCH (05:59)
[2022-01-15 07:57] VITALS: BP 113/65; PULSE 93; TEMP 97.1; O2SAT 95
[2022-01-15] MEDS: *HR* Buprenorphine HCl 2 MG SUBLINGUAL TABLET SL SCH (09:53)
[2022-01-15] MEDS: Aspirin 81 MG TAB.CHEW PO SCH (09:53)
[2022-01-15] MEDS: Metoprolol XL (24 HR) Succ 25 MG TAB.ER.24H PO SCH (09:53)
[2022-01-15] MEDS: Gabapentin 300 MG CAPSULE PO SCH ×2 (09:54→14:59)
[2022-01-15] MEDS: Ertapenem 1,000 MG in 0.9 % Sodium Chloride Mini Bag 100 ML IVPB SCH (09:54)
[2022-01-15] MEDS: Nicotine 14 MG PATCH.TD24 TD SCH (09:54)
[2022-01-15] MEDS: levoFLOXacin 750 MG/150 ML 750 MG/150 ML BAG IVPB SCH (12:31)
== END 2022-01-15 17:13 | DRG 710 ==
LOC: 2ANU 14:56 → EMEROOARM 14:56 → SUATTDRO 19:32 → 2ANU 20:30 → SUATTDRO 12-22 09:25 → ICNU 12-25 14:29 → 2NNU 12-27 09:58 → 2NENU 01-02 10:39
PROVIDERS: ADMIT Internal Medicine; ATTEND Internal Medicine